=== PATIENT | female | born 1975 | race Caucasian/White ===

== ENCOUNTER → 2017-12-20 14:49 | Outpatient (CLI) | payer OTHER, SELFPAY | PROVIDERS: Family Provider Obstetrics & Gynecology; PCP Internal Medicine; Visit Provider Internal Medicine Gastroenterology | DX: M85.852 Other specified disorders of bone density and structure, left thigh (principal); Z82.62 Family history of osteoporosis; K50.80 Crohn's disease of both small and large intestine without complications | CPT/HCPCS: 77080 ==

== ENCOUNTER → 2017-12-23 12:22 | Outpatient (CLI) | payer OTHER, SELFPAY ==
--- NOTE | 2017-12-23 | DI.MG.S_ITS ---
BILATERAL DIGITAL SCREENING MAMMOGRAM 3D/2D WITH CAD: 12/23/2017 CLINICAL: Routine screening. Family history of breast cancer. Comparison is made to exams dated: 11/29/2016 mammogram, 11/19/2016 mammogram, and 11/14/2015 mammogram - [facility]. The tissue of both breasts is extremely dense, which lowers the sensitivity of mammography. Current study was also evaluated with a Computer Aided Detection (CAD) system. No significant masses, calcifications, or other findings are seen in either breast. There has been no significant interval change. IMPRESSION: NEGATIVE There is no mammographic evidence of malignancy. A 1 year screening mammogram is recommended. This exam was interpreted at Station ID: [id number]. NOTE: For mammograms, a report in lay terms will be sent to the patient. Approximately 15% of breast malignancies will not be visualized mammographically. In the management of a palpable breast mass, a negative mammogram must not discourage biopsy of a clinically suspicious lesion. Electronically Signed By: Judah pardo/mason:12/23/2017 14:45:40 copy to: Pushpa Urbina copy to: Betty Orozco letter sent: Normal Exam ACR BI-RADS Category 1: Negative [id number]
== END ==
PROVIDERS: Family Provider Obstetrics & Gynecology; PCP Internal Medicine; Visit Provider Family Medicine
DX: Z12.31 Encounter for screening mammogram for malignant neoplasm of breast (principal); Z80.3 Family history of malignant neoplasm of breast
CPT/HCPCS: 77063; 77067

== ENCOUNTER → 2018-03-22 09:20 | Outpatient (CLI) | payer OTHER, SELFPAY ==
[2018-03-22 10:25] LABS: Add Manual Diff / Slide Review NO; Basophils Percent Auto 0.9 % (0-2); Eosinophils Percent Auto 1.5 % (2-4); Hematocrit 39.7 % (36-46); Hemoglobin 13.8 g/dL (12.0-16.0); Lymphocytes Percent Auto 10.5 % (25-40); Mean Corpuscular HGB Conc 34.9 % (30-36); Mean Corpuscular Hemoglobin 34.1 PG (26-34); Mean Corpuscular Volume 97.8 fL (80-100); Monocytes Percent Auto 9.5 % (3-14); Neutrophils Absolute Auto 3600 /uL (3000-5900); Neutrophils Percent Auto 77.6 % (50-75); Platelet Count 301 X10^3/uL (150-400); Red Blood Cell Count 4.05 X10^6/uL (4.0-5.2); Red Cell Distribution Width 12.8 % (11.6-14.8); White Blood Cell Count 4.6 X10^3/uL (4.5-11.0)
[2018-03-22 10:46] LABS: Alanine Aminotransferase 20 IU/L (9-52); Albumin 4.5 g/dL (3.5-5.0); Albumin Globulin Ratio 1.5 (1.0-2.8); Alkaline Phosphatase 56 U/L (38-126); Aspartate Aminotransferase 19 IU/L (14-36); Bilirubin Unconjugated 0.8 mg/dL (0.0-1.1); HEMOLYSIS < 15 (0-50); Total Protein 7.5 g/dL (6.3-8.2)
== END ==
PROVIDERS: PCP Internal Medicine; Visit Provider Internal Medicine Gastroenterology
DX: K50.90 Crohn's disease, unspecified, without complications (principal)
CPT/HCPCS: 36415; 80076; 85025

== ENCOUNTER → 2018-04-24 09:08 | Outpatient (CLI) | payer OTHER, SELFPAY ==
[2018-04-24 11:38] LABS: Vitamin D 25 Hydroxy (D3) 38.5 ng/mL (30.0-100.0)
== END ==
PROVIDERS: PCP Internal Medicine; Visit Provider Internal Medicine
DX: K50.90 Crohn's disease, unspecified, without complications (principal); M85.80 Other specified disorders of bone density and structure, unspecified site
CPT/HCPCS: 36415; 82306

== ENCOUNTER → 2018-05-24 13:26 | Outpatient (CLI) | payer OTHER, SELFPAY ==
[2018-05-24 14:41] LABS: Add Manual Diff / Slide Review NO; Basophils Percent Auto 1.3 % (0-2); Eosinophils Percent Auto 1.5 % (2-4); Hematocrit 40.5 % (36-46); Hemoglobin 13.8 g/dL (12.0-16.0); Lymphocytes Percent Auto 22.5 % (25-40); Mean Corpuscular Hemoglobin 33.7 PG (26-34); Mean Corpuscular Volume 99.2 fL (80-100); Monocytes Percent Auto 10.8 % (3-14); Neutrophils Absolute Auto 2400 /uL (3000-5900); Neutrophils Percent Auto 63.9 % (50-75); Platelet Count 326 X10^3/uL (150-400); Red Blood Cell Count 4.08 X10^6/uL (4.0-5.2); White Blood Cell Count 3.7 X10^3/uL (4.5-11.0)
[2018-05-24 15:04] LABS: Erythrocyte Sedimentation Rate 12 MM/HR (0-20)
[2018-05-24 20:19] LABS: Alanine Aminotransferase 37 IU/L (9-52); Albumin 4.5 g/dL (3.5-5.0); Albumin Globulin Ratio 1.6 (1.0-2.8); Alkaline Phosphatase 59 U/L (38-126); Aspartate Aminotransferase 24 IU/L (14-36); BUN Creatinine Ratio 18.6 (6-22); Bilirubin Total 0.7 mg/dL (0.2-1.3); Blood Urea Nitrogen 13 mg/dL (7-17); Calcium 9.6 mg/dL (8.4-10.2); Carbon Dioxide 27 mmol/L (22-32); Chloride 101 mmol/L (98-107); Estimated Glomerular Filt Rate > 60.0 mL/min (>60); Globulin 2.9 g/dL (1.7-4.1); Glucose 90 mg/dL (70-100); HEMOLYSIS < 15 (0-50); Potassium 4.3 mmol/L (3.4-5.1); Sodium 141 mmol/L (137-145); Total Protein 7.4 g/dL (6.3-8.2)
[2018-05-24 20:29] LABS: C-Reactive Protein Quant < 0.5 mg/dL (<1.0)
== END ==
PROVIDERS: Family Provider Obstetrics & Gynecology; PCP Internal Medicine; Visit Provider Internal Medicine Gastroenterology
DX: M85.80 Other specified disorders of bone density and structure, unspecified site (principal)
CPT/HCPCS: 36415; 80053; 85025; 85651; 86140

== ENCOUNTER → 2018-05-25 11:59 | Outpatient (CLI) | payer OTHER, SELFPAY | PROVIDERS: Family Provider Obstetrics & Gynecology; PCP Internal Medicine; Visit Provider Internal Medicine Gastroenterology | DX: M85.80 Other specified disorders of bone density and structure, unspecified site (principal) | CPT/HCPCS: 80299 ==

== ENCOUNTER → 2018-07-17 13:48 | Outpatient (CLI) | payer OTHER, SELFPAY ==
[2018-07-17 15:02] LABS: Add Manual Diff / Slide Review NO; Basophils Percent Auto 1.4 % (0-2); Eosinophils Percent Auto 1.1 % (2-4); Hematocrit 39.9 % (36-46); Hemoglobin 13.8 g/dL (12.0-16.0); Lymphocytes Percent Auto 20.6 % (25-40); Mean Corpuscular HGB Conc 34.5 % (30-36); Mean Corpuscular Hemoglobin 35.1 PG (26-34); Mean Corpuscular Volume 101.9 fL (80-100); Monocytes Percent Auto 9.9 % (3-14); Neutrophils Absolute Auto 2600 /uL (1500-7000); Platelet Count 355 X10^3/uL (150-400); Red Blood Cell Count 3.92 X10^6/uL (4.0-5.2); Red Cell Distribution Width 14.3 % (11.6-14.8); White Blood Cell Count 3.8 X10^3/uL (4.5-11.0)
[2018-07-17 15:26] LABS: Alanine Aminotransferase 37 IU/L (9-52)
== END ==
PROVIDERS: Family Provider Obstetrics & Gynecology; PCP Internal Medicine; Visit Provider Internal Medicine Gastroenterology
DX: K50.90 Crohn's disease, unspecified, without complications (principal)
CPT/HCPCS: 36415; 84460; 85025

== ENCOUNTER → 2018-12-25 13:28 | Outpatient (CLI) | payer OTHER, SELFPAY | PROVIDERS: Family Provider Internal Medicine; PCP Internal Medicine; Visit Provider Internal Medicine | DX: M85.851 Other specified disorders of bone density and structure, right thigh (principal); K50.80 Crohn's disease of both small and large intestine without complications; Z79.899 Other long term (current) drug therapy; Z82.62 Family history of osteoporosis | CPT/HCPCS: 77080 ==

== ENCOUNTER → 2018-12-26 10:28 | Outpatient (CLI) | payer OTHER, SELFPAY ==
--- NOTE | 2018-12-26 | DI.MG.S_ITS ---
BILATERAL DIGITAL SCREENING MAMMOGRAM 3D/2D WITH CAD: 12/26/2018 CLINICAL: Routine screening. Family history of breast cancer. Comparison is made to exams dated: 12/23/2017 mammogram, 11/29/2016 mammogram, 11/19/2016 mammogram, and 11/14/2015 mammogram - [facility]. The tissue of both breasts is extremely dense, which lowers the sensitivity of mammography. Current study was also evaluated with a Computer Aided Detection (CAD) system. No significant masses, calcifications, or other findings are seen in either breast. There has been no significant interval change. IMPRESSION: NEGATIVE There is no mammographic evidence of malignancy. A 1 year screening mammogram is recommended. This exam was interpreted at Station ID: [id number]. NOTE: For mammograms, a report in lay terms will be sent to the patient. Approximately 15% of breast malignancies will not be visualized mammographically. In the management of a palpable breast mass, a negative mammogram must not discourage biopsy of a clinically suspicious lesion. Electronically Signed By: Francisco [email or web address]/[email or web address]:12/26/2018 16:22:57 copy to: Pushpa Urbina copy to: Betty Orozco letter sent: Normal Exam ACR BI-RADS Category 1: Negative [id number]
== END ==
PROVIDERS: PCP Internal Medicine; Visit Provider Internal Medicine
DX: Z12.31 Encounter for screening mammogram for malignant neoplasm of breast (principal); Z80.3 Family history of malignant neoplasm of breast
CPT/HCPCS: 77063; 77067

== ENCOUNTER 2019-01-31 08:15 | Outpatient (RCR) | payer OTHER, SELFPAY ==
--- NOTE | 2018-11-14 17:33 | PT.OIE ---
Current Diagnoses Pain in left shoulder (11/14/18) Past Medical History (Last Updated 02/26/18 @ 18:49 by Ivy Goff) Abnormal Pap smear of cervix (Chronic) Colon polyps (Chronic) Crohn's disease (Chronic ~1993) Plantar warts (Chronic) Scoliosis (Chronic ~1982) Vitamin B12 deficiency (Chronic) Past Surgical History (Last Updated 02/26/18 @ 18:49 by Ivy Goff) Anesthesia (Resolved) History of resection of small bowel (Resolved) History of third molar tooth extraction Status post appendectomy (~1994) Provider Visit Care Team Role Provider Type JAMAR Zelaya Attending Provider Advanced Verifying Specialist Family Provider Primary Care Provider Specialty: Family Practice Address: [address] [place] [address], [facility] Email: [email or web address] Physical Therapy Initial Evaluation PT-OP-A Visit Information Start: 11/14/18 08:11 Freq: Status: Active Protocol: Document 11/14/18 08:12 EA (Rec: 11/14/18 08:15 EA [id number]) Out-Patient Physical Therapy Visit Information Visit Information Visit Type Initial Evaluation Visit Start Time 07:30 Visit Stop Time 08:23 Total Visit Minutes 53 Visit Number 1 Evaluation Information Evaluation Date 11/14/18 PT-OP-B Current Condition Start: 11/14/18 08:11 Freq: Status: Active Protocol: Document 11/15/18 07:30 EA (Rec: 11/15/18 07:53 EA [id number]) Current Condition History of Current Condition Onset Date 1 1/2 month ago Current Complaints Left shoulder pain History of Current Condition Present condition started 1 1/ 2 month ago with no known reason; states pain gradually developed and aggravated with shoulder internal rotation and adduction like wearing under shirt of jacket. He mentioned that she has a side table drawer on the left side that she thinks aggravated most when opening and closing it. She denies pain at night. Patient reports no recent x- ray performed. She does go to chiropractor once a month and massage therapist with good results. Prescribed anti- inflammatory meds helps her to managed pain. Prior Treatments and Tests Chiropractor and massage therapist treament once month. Future Testing and Treatments Planned None identified. Treatment Goals Patient/Caregiver Goals Patient would like to get rid of the pain. Prior Functional Status Baseline Function- ADL's Independent Baseline Function- Mobility Independent Baseline Function- Work/School No limitation at work 1 1/2 month ago Baseline Function- Recreation/Hobbies Did not mentioned any recreational activities or hobbies. Current Functional Impairments (Reported) Functional Limitations- ADL's Indep with limitation in overhead, donning and doffing clothings. 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 Difficulty with closing and opening left side table drawer Functional Limitations- Recreation/ No mentioned recreation and Hobbies hobbies Functional Limitations- Other None Personal Factors Other Personal Factors That May Effect Chron's disease Therapy/Recovery PT-OP-C Subjective Start: 11/14/18 08:11 Freq: Status: Active Protocol: Document 11/15/18 07:30 EA (Rec: 11/15/18 07:53 EA [id number]) OP-PT Subjective Patient Comments Patient Comments I have difficulty of putting my clothes on and off Patient Reported Progress Same Patient Questionnaires Quick Dash- Upper Extremity Quick Dash UE Score 16 Quick Dash UE Impairment 1 to 19% Impaired (Score 1-19) PT-OP-E Functional Tests Start: 11/14/18 08:11 Freq: Status: Active Protocol: Document 11/15/18 07:30 EA (Rec: 11/15/18 07:53 EA [id number]) Functional Tests Apley's Scratch Test Action 1: The subject is instructed to touch the opposite shoulder with his/her hand. This motion checks Glenohumeral adduction, internal rotation , horizontal adduction and scapular protraction Action 2: The subject is instructed to place his/her arm overhead and reach behind the neck to touch his/her upper back. This motion checks Glenohumeral abduction, external rotation and scapular upward rotation and elevation. Action 3: The subject puts his/her hand on the lower back and reaches upward as far as possible. This motion checks glenohumeral adduction, internal rotation and scapular retraction with downward rotation Action 1- Left able Action 1- Right able Action 2- Left T4 Action 2- Right T6 Action 3- Left T8 Action 3- Right T4 PT-OP-F Manual Assessment Start: 11/14/18 08:11 Freq: Status: Active Protocol: Document 11/15/18 07:30 EA (Rec: 11/15/18 07:53 EA [id number]) Manual Assessments Soft Tissue Assessment Soft Tissue Mobility Assessment Pectorals, Left upper traps. Joint Mobility Assessment Joint Mobility Assessment Normal PT-OP-J Posture/Palpation/Skin Start: 11/14/18 08:11 Freq: Status: Active Protocol: Document 11/15/18 07:30 EA (Rec: 11/15/18 07:53 EA [id number]) Posture Evaluation Comments Posture Comments Slight forward head rouded shoulder with left shoulder slightly elevated. Palpation Assessment Location One Palpation Location Left upper traps, Teres Minor, Infraspinatus Palpation Findings Tenderness PT-OP-K Range of Motion Start: 11/14/18 08:11 Freq: Status: Active Protocol: Document 11/15/18 07:30 EA (Rec: 11/15/18 07:53 EA [id number]) Shoulder Goniometric Range of Motion Shoulder Measured in Degrees Right Active Shoulder ROM WFL Yes Left Active Flexion 180 Extension 60 Abduction 180 External Rotation at 90 degrees 70 Abduction Internal Rotation Behind Back (text) 40 PT-OP-L Special Tests Start: 11/14/18 08:11 Freq: Status: Active Protocol: Document 11/15/18 07:30 EA (Rec: 11/15/18 07:53 EA [id number]) Special Tests Shoulder Special Tests Yergason's Biceps Test Results - Posterior Impingement Test Results + Lift-Off Rotator Cuff Test Results + Empty Can Test Results sensitive Fregoso Impingement Test Results + Elevation Impingement Test Results + PT-OP-M Strength Start: 11/14/18 08:11 Freq: Status: Active Protocol: Document 11/15/18 07:30 EA (Rec: 11/15/18 07:53 EA [id number]) Shoulder Strength Shoulder Manual Muscle Testing Right Reason Not Measured WFL Left Flexion 4 Good Extension 5 Normal Abduction (C5) 4 Good Adduction 5 Normal External Rotation 4- Good- Internal Rotation 4- Good- Comments Pain with resisted ER PT-OP-Q Treatments Start: 11/14/18 08:11 Freq: Status: Active Protocol: Document 11/14/18 08:56 EA (Rec: 11/14/18 09:00 EA [id number]) Manual Therapy Treatment Soft Tissue Mobilization 1 Body Location Posterior left shoulder Mobilization Type Cross-Friction Myofascial Release Rolling Intensity/Depth Moderate Body Position Sidelying PT-OP-R Modalities Start: 11/14/18 08:11 Freq: Status: Active Protocol: Document 11/14/18 08:56 EA (Rec: 11/14/18 09:00 EA [id number]) Electric Stimulation Electric Stimulation Interferential Current (IFC) Body Location Post left shoulder/ Infra, Supra Contraction Type Normal Combined With Heat/Cold Cold Pack Ultrasound Therapy Treatment Left Posterior Shoulder Patient Position Sidelying Coupling Medium Ultrasound Gel Frequency Setting (mHz) 1 Mode Setting Continuous Intensity Setting (w/cm2) 1.2 PT-OP-T Assessment and Plan Start: 11/14/18 08:11 Freq: Status: Active Protocol: Document 11/14/18 08:56 EA (Rec: 11/14/18 09:00 EA [id number]) Physical Therapy Assessment Rehab Potential Rehabilitation Potential Good Evaluation Complexity Number of Personal Factors/Comorbidities 0 Number of Body Systems Impaired 1-2 Clinical Presentation at Evaluation Stable Impairments Impairments Activity Tolerance Pain Posture Strength Goals Four Impairment Impaired functioanal Appley's test Correction Goal (LTG) Patient will have normal functional reach behind with no increase in symptoms. LTG Duration 4 wks Three Impairment Impaired donning and doffing upper clothings Nylon Hot Wire Cutter Goal (LTG) Patient will jefferson and doff clothings with no pain and impairment. LTG Duration 4 wks Two Impairment quick Dash of 16 Correction Goal (LTG) Patient will have quickDash results of < 10 LTG Duration 4 wks One Impairment NO HEP in place Nylon Hot Wire Cutter Goal (LTG) Patient will exhibit indep HEP . LTG Duration 4 wks Assessment Summary Assessment Pleasant 43 y/o F patient with referring diagnosis left shoulder pain. Today patient demonstrates difficulty with shoulder mobility particularly reaching behind due to pain and slight stiffness to shoulder joint. Tests and assessment reveals + with three special tests consistent with rotator cuff tendonitis possibly infraspinatus and teres minor tendon. No tear identified at the moment as weakness is probably attributed to pain. In my professional opinion, patient would benefit with skilled PT to address the issues of pain, muscular stiffness, posture with an aim of restoring previous level of function. Physical Therapy Plan Frequency and Duration Frequency of Treatment 2x/Week Duration of Treatment 8 wks Plan of Care Start Date 11/14/18 Plan of Care End Date 01/09/19 Therapeutic Interventions Therapeutic Interventions Home Exercise Program Joint Mobilizations Manual Therapy Patient/Caregiver Education Self-Care/Home Management Soft Tissue Mobilization Taping Therapeutic Exercises Modalities Cold Pack/Ice Massage Electric Stimulation Hot Packs Ultrasound Next Visit Focus/Plan Next Note Type Treatment Note Next Visit Plan Provide HEP with Images. Modalities and manual therapy for pain. strengthening
--- NOTE | 2018-11-14 17:33 | PT.OPPOC ---
Current Diagnoses Pain in left shoulder (11/14/18) Provider Visit Care Team Role Provider Type JAMAR Zelaya Attending Provider Advanced Wax Ball Knock Out Worker Family Provider Primary Care Provider Specialty: Family Practice Address: [address] [place] [address], [facility] [place], [facility] Email: [email or web address] Plan Of Care PT-OP-T Assessment and Plan Start: 11/14/18 08:11 Freq: Status: Active Protocol: Document 11/14/18 08:56 EA (Rec: 11/14/18 09:00 EA [id number]) Physical Therapy Assessment Rehab Potential Rehabilitation Potential Good Evaluation Complexity Number of Personal Factors/Comorbidities 0 Number of Body Systems Impaired 1-2 Clinical Presentation at Evaluation Stable Impairments Impairments Activity Tolerance Pain Posture Strength Goals Four Impairment Impaired functional Appley's test Crusher Goal (LTG) Patient will have normal functional reach behind with no increase in symptoms. LTG Duration 4 wks Three Impairment Impaired donning and doffing upper clothings Crusher Goal (LTG) Patient will jefferson and doff clothings with no pain and impairment. LTG Duration 4 wks Two Impairment quick Dash of 16 Care Home Goal (LTG) Patient will have quickDash results of < 10 LTG Duration 4 wks One Impairment NO HEP in place Care Home Goal (LTG) Patient will exhibit indep HEP . LTG Duration 4 wks Assessment Summary Assessment Pleasant 43 y/o F patient with referring diagnosis left shoulder pain. Today patient demonstrates difficulty with shoulder mobility particularly reaching behind due to pain and slight stiffness to shoulder joint. Tests and assessment reveals + with three special tests consistent with rotator cuff tendonitis possibly infraspinatus and teres minor tendon. No tear identified at the moment as weakness is probably attributed to pain. In my professional opinion, patient would benefit with skilled PT to address the issues of pain, muscular stiffness, posture with an aim of restoring previous level of function. Physical Therapy Plan Frequency and Duration Frequency of Treatment 2x/Week Duration of Treatment 8 wks Plan of Care Start Date 11/14/18 Plan of Care End Date 01/09/19 Therapeutic Interventions Therapeutic Interventions Home Exercise Program Joint Mobilizations Manual Therapy Patient/Caregiver Education Self-Care/Home Management Soft Tissue Mobilization Taping Therapeutic Exercises Modalities Cold Pack/Ice Massage Electric Stimulation Hot Packs Ultrasound Next Visit Focus/Plan Next Note Type Treatment Note Next Visit Plan Provide HEP with Images. Modalities and manual therapy for pain. strengthening Plan of Care Dates Plan of Care Start Date 11/14/18 Plan of Care End Date 01/09/19 Please Sign and Return: I have reviewed this Plan of Care and certify that the skilled therapy services above are required to meet the patient?s needs. Physician Signature Date Printed Name and Credentials Clinical Instructor Signature Printed Name and Credentials
--- NOTE | 2018-11-16 08:59 | PT.OTN ---
Current Diagnoses Pain in left shoulder (11/16/18) Physical Therapy Treatment Note PT-OP-A Visit Information Start: 11/14/18 08:11 Freq: Status: Active Protocol: Document 11/16/18 08:19 EA (Rec: 11/16/18 08:21 EA [id number]) Out-Patient Physical Therapy Visit Information Visit Information Visit Type Treatment Note Visit Start Time 07:30 Visit Stop Time 08:23 Total Visit Minutes 53 Visit Number 2 PT-OP-B Current Condition Start: 11/14/18 08:11 Freq: Status: Active Protocol: Document 11/15/18 07:30 EA (Rec: 11/15/18 07:53 EA [id number]) Current Condition History of Current Condition Onset Date 1 1/2 month ago Current Complaints Left shoulder pain History of Current Condition Present condition started 1 1/ 2 month ago with no known reason; states pain gradually developed and aggravated with shoulder internal rotation and adduction like wearing under shirt of jacket. He mentioned that she has a side table drawer on the left side that she thinks aggravated most when opening and closing it. She denies pain at night. Patient reports no recent x- ray performed. She does go to chiropractor once a month and massage therapist with good results. Prescribed anti- inflammatory meds helps her to managed pain. Prior Treatments and Tests Chiropractor and massage therapist treament once month. Future Testing and Treatments Planned None identified. Treatment Goals Patient/Caregiver Goals Patient would like to get rid of the pain. Prior Functional Status Baseline Function- ADL's Independent Baseline Function- Mobility Independent Baseline Function- Work/School No limitation at work 1 1/2 month ago Baseline Function- Recreation/Hobbies Did not mentioned any recreational activities or hobbies. Current Functional Impairments (Reported) Functional Limitations- ADL's Indep with limitation in overhead, donning and doffing clothings. 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 Difficulty with closing and opening left side table drawer Functional Limitations- Recreation/ No mentioned recreation and Hobbies hobbies Functional Limitations- Other None Personal Factors Other Personal Factors That May Effect Chron's disease Therapy/Recovery PT-OP-C Subjective Start: 11/14/18 08:11 Freq: Status: Active Protocol: Document 11/16/18 08:56 EA (Rec: 11/16/18 08:57 EA [id number]) OP-PT Subjective Patient Comments Patient Comments Pt reports last session was helpful; would like to know HEP. Patient Reported Progress Improving PT-OP-E Functional Tests Start: 11/14/18 08:11 Freq: Status: Active Protocol: Document 11/15/18 07:30 EA (Rec: 11/15/18 07:53 EA [id number]) Functional Tests Apley's Scratch Test Action 1: The subject is instructed to touch the opposite shoulder with his/her hand. This motion checks Glenohumeral adduction, internal rotation , horizontal adduction and scapular protraction Action 2: The subject is instructed to place his/her arm overhead and reach behind the neck to touch his/her upper back. This motion checks Glenohumeral abduction, external rotation and scapular upward rotation and elevation. Action 3: The subject puts his/her hand on the lower back and reaches upward as far as possible. This motion checks glenohumeral adduction, internal rotation and scapular retraction with downward rotation Action 1- Left able Action 1- Right able Action 2- Left T4 Action 2- Right T6 Action 3- Left T8 Action 3- Right T4 PT-OP-F Manual Assessment Start: 11/14/18 08:11 Freq: Status: Active Protocol: Document 11/15/18 07:30 EA (Rec: 11/15/18 07:53 EA [id number]) Manual Assessments Soft Tissue Assessment Soft Tissue Mobility Assessment Pectorals, Left upper traps. Joint Mobility Assessment Joint Mobility Assessment Normal PT-OP-J Posture/Palpation/Skin Start: 11/14/18 08:11 Freq: Status: Active Protocol: Document 11/15/18 07:30 EA (Rec: 11/15/18 07:53 EA [id number]) Posture Evaluation Comments Posture Comments Slight forward head rouded shoulder with left shoulder slightly elevated. Palpation Assessment Location One Palpation Location Left upper traps, Teres Minor, Infraspinatus Palpation Findings Tenderness PT-OP-K Range of Motion Start: 11/14/18 08:11 Freq: Status: Active Protocol: Document 11/15/18 07:30 EA (Rec: 11/15/18 07:53 EA [id number]) Shoulder Goniometric Range of Motion Shoulder Measured in Degrees Right Active Shoulder ROM WFL Yes Left Active Flexion 180 Extension 60 Abduction 180 External Rotation at 90 degrees 70 Abduction Internal Rotation Behind Back (text) 40 PT-OP-L Special Tests Start: 11/14/18 08:11 Freq: Status: Active Protocol: Document 11/15/18 07:30 EA (Rec: 11/15/18 07:53 EA [id number]) Special Tests Shoulder Special Tests Yergason's Biceps Test Results - Posterior Impingement Test Results + Lift-Off Rotator Cuff Test Results + Empty Can Test Results sensitive Fregoso Impingement Test Results + Elevation Impingement Test Results + PT-OP-M Strength Start: 11/14/18 08:11 Freq: Status: Active Protocol: Document 11/15/18 07:30 EA (Rec: 11/15/18 07:53 EA [id number]) Shoulder Strength Shoulder Manual Muscle Testing Right Reason Not Measured WFL Left Flexion 4 Good Extension 5 Normal Abduction (C5) 4 Good Adduction 5 Normal External Rotation 4- Good- Internal Rotation 4- Good- Comments Pain with resisted ER PT-OP-Q Treatments Start: 11/14/18 08:11 Freq: Status: Active Protocol: Document 11/16/18 08:19 EA (Rec: 11/16/18 08:21 EA [id number]) Therapeutic Exercises Supine Exercises 1 Supine Exercise Name T-pbars flexion Side bilateral Reps/Minutes x15 reps Sidelying Exercises 3 Sidelying Exercise Name Horiz ABD Side left Reps/Minutes x 15 reps 2 Sidelying Exercise Name Abduction Side left Reps/Minutes x15 reps 1 Sidelying Exercise Name ER Side left Reps/Minutes x15 reps Standing Exercises 1 Standing Exercise Name T-bar shoulder ext Side bilateral Reps/Minutes x 15 reps Manual Therapy Treatment Soft Tissue Mobilization 1 Body Location Posterior left shoulder Mobilization Type Cross-Friction Myofascial Release Rolling Intensity/Depth Moderate Body Position Sidelying Self-Care/Home Management Treatment Education Patient Education Home Exercise Program Joint Protection Pain Management PT-OP-R Modalities Start: 11/14/18 08:11 Freq: Status: Active Protocol: Document 11/16/18 08:19 EA (Rec: 11/16/18 08:21 EA [id number]) Electric Stimulation Electric Stimulation Interferential Current (IFC) Body Location Post left shoulder/ Infra, Supra Contraction Type Normal Combined With Heat/Cold Cold Pack Ultrasound Therapy Treatment Left Posterior Shoulder Patient Position Sidelying Coupling Medium Ultrasound Gel Frequency Setting (mHz) 1 Mode Setting Continuous Intensity Setting (w/cm2) 1.2 PT-OP-T Assessment and Plan Start: 11/14/18 08:11 Freq: Status: Active Protocol: Document 11/16/18 08:56 EA (Rec: 11/16/18 08:57 EA [id number]) Physical Therapy Assessment Assessment Summary Assessment Tolerated treatment well. HEP given, educated and understands safety. Physical Therapy Plan Next Visit Focus/Plan Next Note Type Treatment Note Next Visit Plan cont. with current plan.
--- NOTE | 2018-11-21 12:56 | PT.OTN ---
Current Diagnoses Pain in left shoulder (11/21/18) Physical Therapy Treatment Note PT-OP-A Visit Information Start: 11/14/18 08:11 Freq: Status: Active Protocol: Document 11/21/18 08:12 EA (Rec: 11/21/18 08:16 EA [id number]) Out-Patient Physical Therapy Visit Information Visit Information Visit Type Treatment Note Visit Start Time 07:30 Visit Stop Time 08:25 Total Visit Minutes 55 Visit Number 3 PT-OP-B Current Condition Start: 11/14/18 08:11 Freq: Status: Active Protocol: Document 11/15/18 07:30 EA (Rec: 11/15/18 07:53 EA [id number]) Current Condition History of Current Condition Onset Date 1 1/2 month ago Current Complaints Left shoulder pain History of Current Condition Present condition started 1 1/ 2 month ago with no known reason; states pain gradually developed and aggravated with shoulder internal rotation and adduction like wearing under shirt of jacket. He mentioned that she has a side table drawer on the left side that she thinks aggravated most when opening and closing it. She denies pain at night. Patient reports no recent x- ray performed. She does go to chiropractor once a month and massage therapist with good results. Prescribed anti- inflammatory meds helps her to managed pain. Prior Treatments and Tests Chiropractor and massage therapist treament once month. Future Testing and Treatments Planned None identified. Treatment Goals Patient/Caregiver Goals Patient would like to get rid of the pain. Prior Functional Status Baseline Function- ADL's Independent Baseline Function- Mobility Independent Baseline Function- Work/School No limitation at work 1 1/2 month ago Baseline Function- Recreation/Hobbies Did not mentioned any recreational activities or hobbies. Current Functional Impairments (Reported) Functional Limitations- ADL's Indep with limitation in overhead, donning and doffing clothings. 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 Difficulty with closing and opening left side table drawer Functional Limitations- Recreation/ No mentioned recreation and Hobbies hobbies Functional Limitations- Other None Personal Factors Other Personal Factors That May Effect Chron's disease Therapy/Recovery PT-OP-C Subjective Start: 11/14/18 08:11 Freq: Status: Active Protocol: Document 11/16/18 08:56 EA (Rec: 11/16/18 08:57 EA [id number]) OP-PT Subjective Patient Comments Patient Comments Pt reports last session was helpful; would like to know HEP. Patient Reported Progress Improving PT-OP-E Functional Tests Start: 11/14/18 08:11 Freq: Status: Active Protocol: Document 11/15/18 07:30 EA (Rec: 11/15/18 07:53 EA [id number]) Functional Tests Apley's Scratch Test Action 1: The subject is instructed to touch the opposite shoulder with his/her hand. This motion checks Glenohumeral adduction, internal rotation , horizontal adduction and scapular protraction Action 2: The subject is instructed to place his/her arm overhead and reach behind the neck to touch his/her upper back. This motion checks Glenohumeral abduction, external rotation and scapular upward rotation and elevation. Action 3: The subject puts his/her hand on the lower back and reaches upward as far as possible. This motion checks glenohumeral adduction, internal rotation and scapular retraction with downward rotation Action 1- Left able Action 1- Right able Action 2- Left T4 Action 2- Right T6 Action 3- Left T8 Action 3- Right T4 PT-OP-F Manual Assessment Start: 11/14/18 08:11 Freq: Status: Active Protocol: Document 11/15/18 07:30 EA (Rec: 11/15/18 07:53 EA [id number]) Manual Assessments Soft Tissue Assessment Soft Tissue Mobility Assessment Pectorals, Left upper traps. Joint Mobility Assessment Joint Mobility Assessment Normal PT-OP-J Posture/Palpation/Skin Start: 11/14/18 08:11 Freq: Status: Active Protocol: Document 11/15/18 07:30 EA (Rec: 11/15/18 07:53 EA [id number]) Posture Evaluation Comments Posture Comments Slight forward head rouded shoulder with left shoulder slightly elevated. Palpation Assessment Location One Palpation Location Left upper traps, Teres Minor, Infraspinatus Palpation Findings Tenderness PT-OP-K Range of Motion Start: 11/14/18 08:11 Freq: Status: Active Protocol: Document 11/15/18 07:30 EA (Rec: 11/15/18 07:53 EA [id number]) Shoulder Goniometric Range of Motion Shoulder Measured in Degrees Right Active Shoulder ROM WFL Yes Left Active Flexion 180 Extension 60 Abduction 180 External Rotation at 90 degrees 70 Abduction Internal Rotation Behind Back (text) 40 PT-OP-L Special Tests Start: 11/14/18 08:11 Freq: Status: Active Protocol: Document 11/15/18 07:30 EA (Rec: 11/15/18 07:53 EA [id number]) Special Tests Shoulder Special Tests Yergason's Biceps Test Results - Posterior Impingement Test Results + Lift-Off Rotator Cuff Test Results + Empty Can Test Results sensitive Fregoso Impingement Test Results + Elevation Impingement Test Results + PT-OP-M Strength Start: 11/14/18 08:11 Freq: Status: Active Protocol: Document 11/15/18 07:30 EA (Rec: 11/15/18 07:53 EA [id number]) Shoulder Strength Shoulder Manual Muscle Testing Right Reason Not Measured WFL Left Flexion 4 Good Extension 5 Normal Abduction (C5) 4 Good Adduction 5 Normal External Rotation 4- Good- Internal Rotation 4- Good- Comments Pain with resisted ER PT-OP-Q Treatments Start: 11/14/18 08:11 Freq: Status: Active Protocol: Document 11/21/18 08:12 EA (Rec: 11/21/18 08:16 EA [id number]) Cardio Equipment Upper Body Ergometer (UBE) Duration (Minutes) 5 Height 5 Gym Equipment Cable Column (Body Solid) Rows Resistance 10# Reps/Time x 15 reps Therapeutic Exercises Prone Exercises 1 Prone Exercise Name T-bal shoulder T and Y Resistance 1# Reps/Minutes x 15 reps Sidelying Exercises 3 Sidelying Exercise Name Horiz ABD Side left Resistance 1# Reps/Minutes x 15 reps 2 Sidelying Exercise Name Abduction Side left Resistance 1# Reps/Minutes x15 reps 1 Sidelying Exercise Name ER Side left Reps/Minutes x15 reps Standing Exercises 2 Standing Exercise Name wall posture T-bar flexion Resistance #2 1 Standing Exercise Name T-bar shoulder ext Side bilateral Resistance 2# Reps/Minutes x 15 reps Manual Therapy Treatment Soft Tissue Mobilization 1 Body Location Posterior left shoulder Mobilization Type Cross-Friction Myofascial Release Rolling Intensity/Depth Moderate Body Position Sidelying PT-OP-R Modalities Start: 11/14/18 08:11 Freq: Status: Active Protocol: Document 11/21/18 08:12 EA (Rec: 11/21/18 08:16 EA [id number]) Electric Stimulation Electric Stimulation Interferential Current (IFC) Body Location Post left shoulder/ Infra, Supra Contraction Type Normal Combined With Heat/Cold Cold Pack Ultrasound Therapy Treatment Left Posterior Shoulder Treatment Duration (minutes) 5 Patient Position Sidelying Coupling Medium Ultrasound Gel Frequency Setting (mHz) 1 Mode Setting Continuous Intensity Setting (w/cm2) 1.2 PT-OP-T Assessment and Plan Start: 11/14/18 08:11 Freq: Status: Active Protocol: Document 11/21/18 08:12 EA (Rec: 11/21/18 08:16 EA [id number]) Physical Therapy Assessment Assessment Summary Assessment Improved exercises tolerance. Patient is progressing well. Physical Therapy Plan Next Visit Focus/Plan Next Note Type Treatment Note Next Visit Plan Advance as tolerated.
--- NOTE | 2018-11-23 09:14 | PT.OTN ---
Current Diagnoses Pain in left shoulder (11/23/18) Physical Therapy Treatment Note PT-OP-A Visit Information Start: 11/14/18 08:11 Freq: Status: Active Protocol: Document 11/23/18 08:15 EA (Rec: 11/23/18 08:18 EA [id number]) Out-Patient Physical Therapy Visit Information Visit Information Visit Type Treatment Note Visit Start Time 07:30 Visit Stop Time 08:25 Total Visit Minutes 55 Visit Number 4 PT-OP-B Current Condition Start: 11/14/18 08:11 Freq: Status: Active Protocol: Document 11/15/18 07:30 EA (Rec: 11/15/18 07:53 EA [id number]) Current Condition History of Current Condition Onset Date 1 1/2 month ago Current Complaints Left shoulder pain History of Current Condition Present condition started 1 1/ 2 month ago with no known reason; states pain gradually developed and aggravated with shoulder internal rotation and adduction like wearing under shirt of jacket. He mentioned that she has a side table drawer on the left side that she thinks aggravated most when opening and closing it. She denies pain at night. Patient reports no recent x- ray performed. She does go to chiropractor once a month and massage therapist with good results. Prescribed anti- inflammatory meds helps her to managed pain. Prior Treatments and Tests Chiropractor and massage therapist treament once month. Future Testing and Treatments Planned None identified. Treatment Goals Patient/Caregiver Goals Patient would like to get rid of the pain. Prior Functional Status Baseline Function- ADL's Independent Baseline Function- Mobility Independent Baseline Function- Work/School No limitation at work 1 1/2 month ago Baseline Function- Recreation/Hobbies Did not mentioned any recreational activities or hobbies. Current Functional Impairments (Reported) Functional Limitations- ADL's Indep with limitation in overhead, donning and doffing clothings. 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 Difficulty with closing and opening left side table drawer Functional Limitations- Recreation/ No mentioned recreation and Hobbies hobbies Functional Limitations- Other None Personal Factors Other Personal Factors That May Effect Chron's disease Therapy/Recovery PT-OP-C Subjective Start: 11/14/18 08:11 Freq: Status: Active Protocol: Document 11/23/18 08:15 EA (Rec: 11/23/18 08:18 EA [id number]) OP-PT Subjective Patient Comments Patient Comments Pt reports shoulder is feeling better; states sore after last session. Patient Reported Progress Improving PT-OP-E Functional Tests Start: 11/14/18 08:11 Freq: Status: Active Protocol: Document 11/15/18 07:30 EA (Rec: 11/15/18 07:53 EA [id number]) Functional Tests Apley's Scratch Test Action 1: The subject is instructed to touch the opposite shoulder with his/her hand. This motion checks Glenohumeral adduction, internal rotation , horizontal adduction and scapular protraction Action 2: The subject is instructed to place his/her arm overhead and reach behind the neck to touch his/her upper back. This motion checks Glenohumeral abduction, external rotation and scapular upward rotation and elevation. Action 3: The subject puts his/her hand on the lower back and reaches upward as far as possible. This motion checks glenohumeral adduction, internal rotation and scapular retraction with downward rotation Action 1- Left able Action 1- Right able Action 2- Left T4 Action 2- Right T6 Action 3- Left T8 Action 3- Right T4 PT-OP-F Manual Assessment Start: 11/14/18 08:11 Freq: Status: Active Protocol: Document 11/15/18 07:30 EA (Rec: 11/15/18 07:53 EA [id number]) Manual Assessments Soft Tissue Assessment Soft Tissue Mobility Assessment Pectorals, Left upper traps. Joint Mobility Assessment Joint Mobility Assessment Normal PT-OP-J Posture/Palpation/Skin Start: 11/14/18 08:11 Freq: Status: Active Protocol: Document 11/15/18 07:30 EA (Rec: 11/15/18 07:53 EA [id number]) Posture Evaluation Comments Posture Comments Slight forward head rouded shoulder with left shoulder slightly elevated. Palpation Assessment Location One Palpation Location Left upper traps, Teres Minor, Infraspinatus Palpation Findings Tenderness PT-OP-K Range of Motion Start: 11/14/18 08:11 Freq: Status: Active Protocol: Document 11/15/18 07:30 EA (Rec: 11/15/18 07:53 EA [id number]) Shoulder Goniometric Range of Motion Shoulder Measured in Degrees Right Active Shoulder ROM WFL Yes Left Active Flexion 180 Extension 60 Abduction 180 External Rotation at 90 degrees 70 Abduction Internal Rotation Behind Back (text) 40 PT-OP-L Special Tests Start: 11/14/18 08:11 Freq: Status: Active Protocol: Document 11/15/18 07:30 EA (Rec: 11/15/18 07:53 EA [id number]) Special Tests Shoulder Special Tests Yergason's Biceps Test Results - Posterior Impingement Test Results + Lift-Off Rotator Cuff Test Results + Empty Can Test Results sensitive Fregoso Impingement Test Results + Elevation Impingement Test Results + PT-OP-M Strength Start: 11/14/18 08:11 Freq: Status: Active Protocol: Document 11/15/18 07:30 EA (Rec: 11/15/18 07:53 EA [id number]) Shoulder Strength Shoulder Manual Muscle Testing Right Reason Not Measured WFL Left Flexion 4 Good Extension 5 Normal Abduction (C5) 4 Good Adduction 5 Normal External Rotation 4- Good- Internal Rotation 4- Good- Comments Pain with resisted ER PT-OP-Q Treatments Start: 11/14/18 08:11 Freq: Status: Active Protocol: Document 11/23/18 08:15 EA (Rec: 11/23/18 08:18 EA [id number]) Gym Equipment Cable Column (Body Solid) Rows Resistance 10-20# Reps/Time x 15 reps Therapeutic Exercises Prone Exercises 1 Prone Exercise Name T-bal shoulder T and Y Resistance 1-2# Reps/Minutes x 15 reps Sidelying Exercises 3 Sidelying Exercise Name Horiz ABD Side left Resistance 1# Reps/Minutes x 15 reps 2 Sidelying Exercise Name Abduction Side left Resistance 1# Reps/Minutes x15 reps 1 Sidelying Exercise Name ER Side left Reps/Minutes x15 reps Standing Exercises 3 Standing Exercise Name DB front and side raises Resistance x1-2# Reps/Minutes x 12 reps x 2 2 Standing Exercise Name wall posture T-bar flexion Resistance #2 1 Standing Exercise Name T-bar shoulder ext Side bilateral Resistance 2# Reps/Minutes x 15 reps Manual Therapy Treatment Soft Tissue Mobilization 1 Body Location Posterior left shoulder Mobilization Type Cross-Friction Myofascial Release Rolling Intensity/Depth Moderate Body Position Sidelying PT-OP-R Modalities Start: 11/14/18 08:11 Freq: Status: Active Protocol: Document 11/23/18 08:15 EA (Rec: 11/23/18 08:18 EA [id number]) Electric Stimulation Electric Stimulation Interferential Current (IFC) Body Location Post left shoulder/ Infra, Supra Contraction Type Normal Combined With Heat/Cold Cold Pack Ultrasound Therapy Treatment Left Posterior Shoulder Treatment Duration (minutes) 5 Patient Position Sidelying Coupling Medium Ultrasound Gel Frequency Setting (mHz) 1 Mode Setting Continuous Intensity Setting (w/cm2) 1.2 PT-OP-T Assessment and Plan Start: 11/14/18 08:11 Freq: Status: Active Protocol: Document 11/23/18 08:15 EA (Rec: 11/23/18 08:18 EA [id number]) Physical Therapy Assessment Assessment Summary Assessment PT tolerated treatment with minor discomfort toward ER. Progress as tolerated. Physical Therapy Plan Next Visit Focus/Plan Next Note Type Treatment Note Next Visit Plan Advance as tolerated.
--- NOTE | 2018-11-28 13:44 | PT.OTN ---
Current Diagnoses Pain in left shoulder (11/28/18) Physical Therapy Treatment Note PT-OP-A Visit Information Start: 11/14/18 08:11 Freq: Status: Active Protocol: Document 11/28/18 10:00 EA (Rec: 11/28/18 13:44 EA [id number]) Out-Patient Physical Therapy Visit Information Visit Information Visit Type Treatment Note Visit Start Time 07:30 Visit Stop Time 08:25 Total Visit Minutes 53 Visit Number 5 PT-OP-B Current Condition Start: 11/14/18 08:11 Freq: Status: Active Protocol: Document 11/15/18 07:30 EA (Rec: 11/15/18 07:53 EA [id number]) Current Condition History of Current Condition Onset Date 1 1/2 month ago Current Complaints Left shoulder pain History of Current Condition Present condition started 1 1/ 2 month ago with no known reason; states pain gradually developed and aggravated with shoulder internal rotation and adduction like wearing under shirt of jacket. He mentioned that she has a side table drawer on the left side that she thinks aggravated most when opening and closing it. She denies pain at night. Patient reports no recent x- ray performed. She does go to chiropractor once a month and massage therapist with good results. Prescribed anti- inflammatory meds helps her to managed pain. Prior Treatments and Tests Chiropractor and massage therapist treament once month. Future Testing and Treatments Planned None identified. Treatment Goals Patient/Caregiver Goals Patient would like to get rid of the pain. Prior Functional Status Baseline Function- ADL's Independent Baseline Function- Mobility Independent Baseline Function- Work/School No limitation at work 1 1/2 month ago Baseline Function- Recreation/Hobbies Did not mentioned any recreational activities or hobbies. Current Functional Impairments (Reported) Functional Limitations- ADL's Indep with limitation in overhead, donning and doffing clothings. 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 Difficulty with closing and opening left side table drawer Functional Limitations- Recreation/ No mentioned recreation and Hobbies hobbies Functional Limitations- Other None Personal Factors Other Personal Factors That May Effect Chron's disease Therapy/Recovery PT-OP-C Subjective Start: 11/14/18 08:11 Freq: Status: Active Protocol: Document 11/28/18 10:00 EA (Rec: 11/28/18 13:44 EA [id number]) OP-PT Subjective Patient Comments Patient Comments Patient reports both shoulder are quite sore today; states complaint with HEP. She denies pain at sleep. PT-OP-E Functional Tests Start: 11/14/18 08:11 Freq: Status: Active Protocol: Document 11/15/18 07:30 EA (Rec: 11/15/18 07:53 EA [id number]) Functional Tests Apley's Scratch Test Action 1: The subject is instructed to touch the opposite shoulder with his/her hand. This motion checks Glenohumeral adduction, internal rotation , horizontal adduction and scapular protraction Action 2: The subject is instructed to place his/her arm overhead and reach behind the neck to touch his/her upper back. This motion checks Glenohumeral abduction, external rotation and scapular upward rotation and elevation. Action 3: The subject puts his/her hand on the lower back and reaches upward as far as possible. This motion checks glenohumeral adduction, internal rotation and scapular retraction with downward rotation Action 1- Left able Action 1- Right able Action 2- Left T4 Action 2- Right T6 Action 3- Left T8 Action 3- Right T4 PT-OP-F Manual Assessment Start: 11/14/18 08:11 Freq: Status: Active Protocol: Document 11/15/18 07:30 EA (Rec: 11/15/18 07:53 EA [id number]) Manual Assessments Soft Tissue Assessment Soft Tissue Mobility Assessment Pectorals, Left upper traps. Joint Mobility Assessment Joint Mobility Assessment Normal PT-OP-J Posture/Palpation/Skin Start: 11/14/18 08:11 Freq: Status: Active Protocol: Document 11/15/18 07:30 EA (Rec: 11/15/18 07:53 EA [id number]) Posture Evaluation Comments Posture Comments Slight forward head rouded shoulder with left shoulder slightly elevated. Palpation Assessment Location One Palpation Location Left upper traps, Teres Minor, Infraspinatus Palpation Findings Tenderness PT-OP-K Range of Motion Start: 11/14/18 08:11 Freq: Status: Active Protocol: Document 11/15/18 07:30 EA (Rec: 11/15/18 07:53 EA [id number]) Shoulder Goniometric Range of Motion Shoulder Measured in Degrees Right Active Shoulder ROM WFL Yes Left Active Flexion 180 Extension 60 Abduction 180 External Rotation at 90 degrees 70 Abduction Internal Rotation Behind Back (text) 40 PT-OP-L Special Tests Start: 11/14/18 08:11 Freq: Status: Active Protocol: Document 11/15/18 07:30 EA (Rec: 11/15/18 07:53 EA [id number]) Special Tests Shoulder Special Tests Yergason's Biceps Test Results - Posterior Impingement Test Results + Lift-Off Rotator Cuff Test Results + Empty Can Test Results sensitive Fregoso Impingement Test Results + Elevation Impingement Test Results + PT-OP-M Strength Start: 11/14/18 08:11 Freq: Status: Active Protocol: Document 11/15/18 07:30 EA (Rec: 11/15/18 07:53 EA [id number]) Shoulder Strength Shoulder Manual Muscle Testing Right Reason Not Measured WFL Left Flexion 4 Good Extension 5 Normal Abduction (C5) 4 Good Adduction 5 Normal External Rotation 4- Good- Internal Rotation 4- Good- Comments Pain with resisted ER PT-OP-Q Treatments Start: 11/14/18 08:11 Freq: Status: Active Protocol: Document 11/28/18 10:00 EA (Rec: 11/28/18 13:44 EA [id number]) Cardio Equipment Upper Body Ergometer (UBE) Duration (Minutes) 5 RPM 11 Height 5 Gym Equipment Cable Column (Body Solid) Rows Resistance 10-20# Reps/Time x 15 reps Therapeutic Exercises Prone Exercises 1 Prone Exercise Name T-bal shoulder T and Y Resistance 1-2# Reps/Minutes x 15 reps Sidelying Exercises 3 Sidelying Exercise Name Horiz ABD Side left Resistance 1# Reps/Minutes x 15 reps 2 Sidelying Exercise Name Abduction Side left Resistance 1-2# Reps/Minutes x15 reps x 2 1 Sidelying Exercise Name ER Side left Reps/Minutes x15 reps Standing Exercises 4 Standing Exercise Name Body blade: lower, mid, upper Reps/Minutes fatigue each range 3 Standing Exercise Name DB front and side raises Resistance x1-2# Reps/Minutes x 12 reps x 2 2 Standing Exercise Name wall posture T-bar flexion Resistance #2 1 Standing Exercise Name T-bar shoulder ext Side bilateral Resistance 2# Reps/Minutes x 15 reps Manual Therapy Treatment Soft Tissue Mobilization 1 Body Location Posterior left shoulder Mobilization Type Cross-Friction Myofascial Release Rolling Intensity/Depth Moderate Body Position Sidelying PT-OP-R Modalities Start: 11/14/18 08:11 Freq: Status: Active Protocol: Document 11/28/18 10:00 EA (Rec: 11/28/18 13:44 EA [id number]) Electric Stimulation Electric Stimulation Interferential Current (IFC) Body Location Post left shoulder/ Infra, Supra Duration (Minutes) 15 Contraction Type Normal Combined With Heat/Cold Cold Pack Ultrasound Therapy Treatment Left Posterior Shoulder Treatment Duration (minutes) 5 Patient Position Sidelying Coupling Medium Ultrasound Gel Frequency Setting (mHz) 1 Mode Setting Continuous Intensity Setting (w/cm2) 1.2 PT-OP-T Assessment and Plan Start: 11/14/18 08:11 Freq: Status: Active Protocol: Document 11/28/18 10:00 EA (Rec: 11/28/18 13:44 EA [id number]) Physical Therapy Assessment Assessment Summary Assessment No noted signs of discomfort with all standing exercises; cripitus noted with SLHoriz abduction. Physical Therapy Plan Next Visit Focus/Plan Next Note Type Treatment Note Next Visit Plan Adavance as tolerated.
--- NOTE | 2018-11-30 09:47 | PT.OTN ---
Current Diagnoses Pain in left shoulder (11/30/18) Physical Therapy Treatment Note PT-OP-A Visit Information Start: 11/14/18 08:11 Freq: Status: Active Protocol: Document 11/30/18 09:38 EA (Rec: 11/30/18 09:47 EA [id number]) Out-Patient Physical Therapy Visit Information Visit Information Visit Type Treatment Note Visit Start Time 07:30 Visit Stop Time 08:25 Total Visit Minutes 53 Visit Number 6 PT-OP-B Current Condition Start: 11/14/18 08:11 Freq: Status: Active Protocol: Document 11/15/18 07:30 EA (Rec: 11/15/18 07:53 EA [id number]) Current Condition History of Current Condition Onset Date 1 1/2 month ago Current Complaints Left shoulder pain History of Current Condition Present condition started 1 1/ 2 month ago with no known reason; states pain gradually developed and aggravated with shoulder internal rotation and adduction like wearing under shirt of jacket. He mentioned that she has a side table drawer on the left side that she thinks aggravated most when opening and closing it. She denies pain at night. Patient reports no recent x- ray performed. She does go to chiropractor once a month and massage therapist with good results. Prescribed anti- inflammatory meds helps her to managed pain. Prior Treatments and Tests Chiropractor and massage therapist treament once month. Future Testing and Treatments Planned None identified. Treatment Goals Patient/Caregiver Goals Patient would like to get rid of the pain. Prior Functional Status Baseline Function- ADL's Independent Baseline Function- Mobility Independent Baseline Function- Work/School No limitation at work 1 1/2 month ago Baseline Function- Recreation/Hobbies Did not mentioned any recreational activities or hobbies. Current Functional Impairments (Reported) Functional Limitations- ADL's Indep with limitation in overhead, donning and doffing clothings. 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 Difficulty with closing and opening left side table drawer Functional Limitations- Recreation/ No mentioned recreation and Hobbies hobbies Functional Limitations- Other None Personal Factors Other Personal Factors That May Effect Chron's disease Therapy/Recovery PT-OP-C Subjective Start: 11/14/18 08:11 Freq: Status: Active Protocol: Document 11/30/18 09:38 EA (Rec: 11/30/18 09:47 EA [id number]) OP-PT Subjective Patient Comments Patient Comments Pt reports less frequent pain; states pain increased this morning while reaching for light switch. PT-OP-E Functional Tests Start: 11/14/18 08:11 Freq: Status: Active Protocol: Document 11/15/18 07:30 EA (Rec: 11/15/18 07:53 EA [id number]) Functional Tests Apley's Scratch Test Action 1: The subject is instructed to touch the opposite shoulder with his/her hand. This motion checks Glenohumeral adduction, internal rotation , horizontal adduction and scapular protraction Action 2: The subject is instructed to place his/her arm overhead and reach behind the neck to touch his/her upper back. This motion checks Glenohumeral abduction, external rotation and scapular upward rotation and elevation. Action 3: The subject puts his/her hand on the lower back and reaches upward as far as possible. This motion checks glenohumeral adduction, internal rotation and scapular retraction with downward rotation Action 1- Left able Action 1- Right able Action 2- Left T4 Action 2- Right T6 Action 3- Left T8 Action 3- Right T4 PT-OP-F Manual Assessment Start: 11/14/18 08:11 Freq: Status: Active Protocol: Document 11/15/18 07:30 EA (Rec: 11/15/18 07:53 EA [id number]) Manual Assessments Soft Tissue Assessment Soft Tissue Mobility Assessment Pectorals, Left upper traps. Joint Mobility Assessment Joint Mobility Assessment Normal PT-OP-J Posture/Palpation/Skin Start: 11/14/18 08:11 Freq: Status: Active Protocol: Document 11/15/18 07:30 EA (Rec: 11/15/18 07:53 EA [id number]) Posture Evaluation Comments Posture Comments Slight forward head rouded shoulder with left shoulder slightly elevated. Palpation Assessment Location One Palpation Location Left upper traps, Teres Minor, Infraspinatus Palpation Findings Tenderness PT-OP-K Range of Motion Start: 11/14/18 08:11 Freq: Status: Active Protocol: Document 11/15/18 07:30 EA (Rec: 11/15/18 07:53 EA [id number]) Shoulder Goniometric Range of Motion Shoulder Measured in Degrees Right Active Shoulder ROM WFL Yes Left Active Flexion 180 Extension 60 Abduction 180 External Rotation at 90 degrees 70 Abduction Internal Rotation Behind Back (text) 40 PT-OP-L Special Tests Start: 11/14/18 08:11 Freq: Status: Active Protocol: Document 11/15/18 07:30 EA (Rec: 11/15/18 07:53 EA [id number]) Special Tests Shoulder Special Tests Yergason's Biceps Test Results - Posterior Impingement Test Results + Lift-Off Rotator Cuff Test Results + Empty Can Test Results sensitive Fregoso Impingement Test Results + Elevation Impingement Test Results + PT-OP-M Strength Start: 11/14/18 08:11 Freq: Status: Active Protocol: Document 11/15/18 07:30 EA (Rec: 11/15/18 07:53 EA [id number]) Shoulder Strength Shoulder Manual Muscle Testing Right Reason Not Measured WFL Left Flexion 4 Good Extension 5 Normal Abduction (C5) 4 Good Adduction 5 Normal External Rotation 4- Good- Internal Rotation 4- Good- Comments Pain with resisted ER PT-OP-Q Treatments Start: 11/14/18 08:11 Freq: Status: Active Protocol: Document 11/30/18 09:38 EA (Rec: 11/30/18 09:47 EA [id number]) Cardio Equipment Upper Body Ergometer (UBE) Duration (Minutes) 5 RPM 11 Height 7 Other no pain: backward/fwd Gym Equipment Cable Column (Body Solid) Rows Details increased pain a 20# Resistance 10-# Reps/Time x 15 reps Therapeutic Exercises Sidelying Exercises 3 Sidelying Exercise Name Horiz ABD Side left Resistance 2# Reps/Minutes x 15 reps 2 Sidelying Exercise Name Abduction Side left Resistance 1-2# Reps/Minutes x15 reps x 2 1 Sidelying Exercise Name ER Side left Resistance 2# Reps/Minutes x15 reps Standing Exercises 4 Standing Exercise Name Body blade: lower, mid, upper Reps/Minutes fatigue each range 3 Standing Exercise Name DB front and side raises Resistance x1-2# Reps/Minutes x 12 reps x 2 1 Standing Exercise Name T-bar shoulder ext Side bilateral Resistance 2# Reps/Minutes x 15 reps x 2 Manual Therapy Treatment Soft Tissue Mobilization 1 Body Location Anterior left shoulder Mobilization Type Cross-Friction Myofascial Release Rolling Intensity/Depth Moderate Body Position Sidelying PT-OP-R Modalities Start: 11/14/18 08:11 Freq: Status: Active Protocol: Document 11/30/18 09:38 EA (Rec: 11/30/18 09:47 EA [id number]) Hot Pack/Cold Pack Treatment Cold Pack Location Left shoulder/ant Patient Position Hooklying Treatment Duration (minutes) 15 Patient Tolerance Good Ultrasound Therapy Treatment Left Anterior Shoulder Treatment Duration (minutes) 5 Patient Position Supine Coupling Medium Ultrasound Gel Frequency Setting (mHz) 1 Intensity Setting (w/cm2) 1.2 Left Posterior Shoulder Treatment Duration (minutes) 5 Patient Position Sidelying Coupling Medium Ultrasound Gel Frequency Setting (mHz) 1 Mode Setting Continuous Intensity Setting (w/cm2) 1.2 PT-OP-T Assessment and Plan Start: 11/14/18 08:11 Freq: Status: Active Protocol: Document 11/30/18 09:38 EA (Rec: 11/30/18 09:47 EA [id number]) Physical Therapy Assessment Assessment Summary Assessment Tests performed and reveals with positive Yegarson's and Fregoso test. Advised patient refrain with all heavy lifting to left side even at low shoulder level. recommended to perform HEP AROM of the shoulders. Physical Therapy Plan Next Visit Focus/Plan Next Note Type Treatment Note Next Visit Plan Progress as tolerated
--- NOTE | 2018-12-05 09:10 | PT.OTN ---
Current Diagnoses Pain in left shoulder (12/05/18) Physical Therapy Treatment Note PT-OP-A Visit Information Start: 11/14/18 08:11 Freq: Status: Active Protocol: Document 12/05/18 08:56 EA (Rec: 12/05/18 09:00 EA [id number]) Out-Patient Physical Therapy Visit Information Visit Information Visit Type Treatment Note Visit Start Time 07:30 Visit Stop Time 08:25 Total Visit Minutes 55 Visit Number 7 PT-OP-B Current Condition Start: 11/14/18 08:11 Freq: Status: Active Protocol: Document 11/15/18 07:30 EA (Rec: 11/15/18 07:53 EA [id number]) Current Condition History of Current Condition Onset Date 1 1/2 month ago Current Complaints Left shoulder pain History of Current Condition Present condition started 1 1/ 2 month ago with no known reason; states pain gradually developed and aggravated with shoulder internal rotation and adduction like wearing under shirt of jacket. He mentioned that she has a side table drawer on the left side that she thinks aggravated most when opening and closing it. She denies pain at night. Patient reports no recent x- ray performed. She does go to chiropractor once a month and massage therapist with good results. Prescribed anti- inflammatory meds helps her to managed pain. Prior Treatments and Tests Chiropractor and massage therapist treament once month. Future Testing and Treatments Planned None identified. Treatment Goals Patient/Caregiver Goals Patient would like to get rid of the pain. Prior Functional Status Baseline Function- ADL's Independent Baseline Function- Mobility Independent Baseline Function- Work/School No limitation at work 1 1/2 month ago Baseline Function- Recreation/Hobbies Did not mentioned any recreational activities or hobbies. Current Functional Impairments (Reported) Functional Limitations- ADL's Indep with limitation in overhead, donning and doffing clothings. 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 Difficulty with closing and opening left side table drawer Functional Limitations- Recreation/ No mentioned recreation and Hobbies hobbies Functional Limitations- Other None Personal Factors Other Personal Factors That May Effect Chron's disease Therapy/Recovery PT-OP-C Subjective Start: 11/14/18 08:11 Freq: Status: Active Protocol: Document 12/05/18 08:56 EA (Rec: 12/05/18 09:00 EA [id number]) OP-PT Subjective Patient Comments Patient Comments Pt admitted unable to perform HEP due to work schedule; denies pain at rest only with extreme motion. PT-OP-E Functional Tests Start: 11/14/18 08:11 Freq: Status: Active Protocol: Document 11/15/18 07:30 EA (Rec: 11/15/18 07:53 EA [id number]) Functional Tests Apley's Scratch Test Action 1: The subject is instructed to touch the opposite shoulder with his/her hand. This motion checks Glenohumeral adduction, internal rotation , horizontal adduction and scapular protraction Action 2: The subject is instructed to place his/her arm overhead and reach behind the neck to touch his/her upper back. This motion checks Glenohumeral abduction, external rotation and scapular upward rotation and elevation. Action 3: The subject puts his/her hand on the lower back and reaches upward as far as possible. This motion checks glenohumeral adduction, internal rotation and scapular retraction with downward rotation Action 1- Left able Action 1- Right able Action 2- Left T4 Action 2- Right T6 Action 3- Left T8 Action 3- Right T4 PT-OP-F Manual Assessment Start: 11/14/18 08:11 Freq: Status: Active Protocol: Document 11/15/18 07:30 EA (Rec: 11/15/18 07:53 EA [id number]) Manual Assessments Soft Tissue Assessment Soft Tissue Mobility Assessment Pectorals, Left upper traps. Joint Mobility Assessment Joint Mobility Assessment Normal PT-OP-J Posture/Palpation/Skin Start: 11/14/18 08:11 Freq: Status: Active Protocol: Document 11/15/18 07:30 EA (Rec: 11/15/18 07:53 EA [id number]) Posture Evaluation Comments Posture Comments Slight forward head rouded shoulder with left shoulder slightly elevated. Palpation Assessment Location One Palpation Location Left upper traps, Teres Minor, Infraspinatus Palpation Findings Tenderness PT-OP-K Range of Motion Start: 11/14/18 08:11 Freq: Status: Active Protocol: Document 11/15/18 07:30 EA (Rec: 11/15/18 07:53 EA [id number]) Shoulder Goniometric Range of Motion Shoulder Measured in Degrees Right Active Shoulder ROM WFL Yes Left Active Flexion 180 Extension 60 Abduction 180 External Rotation at 90 degrees 70 Abduction Internal Rotation Behind Back (text) 40 PT-OP-L Special Tests Start: 11/14/18 08:11 Freq: Status: Active Protocol: Document 11/15/18 07:30 EA (Rec: 11/15/18 07:53 EA [id number]) Special Tests Shoulder Special Tests Yergason's Biceps Test Results - Posterior Impingement Test Results + Lift-Off Rotator Cuff Test Results + Empty Can Test Results sensitive Fregoso Impingement Test Results + Elevation Impingement Test Results + PT-OP-M Strength Start: 11/14/18 08:11 Freq: Status: Active Protocol: Document 11/15/18 07:30 EA (Rec: 11/15/18 07:53 EA [id number]) Shoulder Strength Shoulder Manual Muscle Testing Right Reason Not Measured WFL Left Flexion 4 Good Extension 5 Normal Abduction (C5) 4 Good Adduction 5 Normal External Rotation 4- Good- Internal Rotation 4- Good- Comments Pain with resisted ER PT-OP-Q Treatments Start: 11/14/18 08:11 Freq: Status: Active Protocol: Document 12/05/18 08:56 EA (Rec: 12/05/18 09:00 EA [id number]) Cardio Equipment Upper Body Ergometer (UBE) Duration (Minutes) 5 RPM 11 Height 7 Gym Equipment Cable Column (Body Solid) Rows Details increased pain a 20# Resistance 10-20# Reps/Time x 15 reps Therapeutic Exercises Prone Exercises 1 Prone Exercise Name T-bal shoulder T and Y Resistance 1-2# Reps/Minutes x 12 x2 sets Sidelying Exercises 3 Sidelying Exercise Name Horiz ABD Side left Resistance 2# Reps/Minutes x 15 reps 2 Sidelying Exercise Name Abduction Side left Resistance 1-2# Reps/Minutes x15 reps x 2 1 Sidelying Exercise Name ER Side left Resistance 2# Reps/Minutes x15 reps Standing Exercises 4 Standing Exercise Name Body blade: lower, mid, upper Reps/Minutes fatigue each range 3 Standing Exercise Name DB front and side raises Resistance x1-2# Reps/Minutes x 12 reps x 2 2 Standing Exercise Name wall posture T-bar flexion Resistance #2 1 Standing Exercise Name T-bar shoulder ext Side bilateral Resistance 2# Reps/Minutes x 15 reps x 2 Manual Therapy Treatment Soft Tissue Mobilization 1 Body Location Anterior left shoulder Mobilization Type Cross-Friction Myofascial Release Rolling Intensity/Depth Moderate Body Position Supine PT-OP-R Modalities Start: 11/14/18 08:11 Freq: Status: Active Protocol: Document 12/05/18 08:56 EA (Rec: 12/05/18 09:00 EA [id number]) Hot Pack/Cold Pack Treatment Cold Pack Location Left shoulder/ant Patient Position Hooklying Treatment Duration (minutes) 15 Patient Tolerance Good Ultrasound Therapy Treatment Left Anterior Shoulder Treatment Duration (minutes) 5 Patient Position Supine Coupling Medium Ultrasound Gel Frequency Setting (mHz) 1 Intensity Setting (w/cm2) 1.2 PT-OP-T Assessment and Plan Start: 11/14/18 08:11 Freq: Status: Active Protocol: Document 12/05/18 08:56 EA (Rec: 12/05/18 09:00 EA [id number]) Physical Therapy Assessment Assessment Summary Assessment Decreased c/o pain during therex with maintain ROM; patient cont. to progress. Physical Therapy Plan Next Visit Focus/Plan Next Note Type Treatment Note Next Visit Plan Progress as tolerated
--- NOTE | 2018-12-19 09:10 | PT.OTN ---
Current Diagnoses Pain in left shoulder (12/19/18) Physical Therapy Treatment Note PT-OP-A Visit Information Start: 11/14/18 08:11 Freq: Status: Active Protocol: Document 12/19/18 09:03 SA (Rec: 12/19/18 09:10 SA [id number]) Out-Patient Physical Therapy Visit Information Visit Information Visit Type Treatment Note Visit Start Time 07:30 Visit Stop Time 08:20 Total Visit Minutes 50 Visit Number 8 PT-OP-B Current Condition Start: 11/14/18 08:11 Freq: Status: Active Protocol: Document 11/15/18 07:30 EA (Rec: 11/15/18 07:53 EA [id number]) Current Condition History of Current Condition Onset Date 1 1/2 month ago Current Complaints Left shoulder pain History of Current Condition Present condition started 1 1/ 2 month ago with no known reason; states pain gradually developed and aggravated with shoulder internal rotation and adduction like wearing under shirt of jacket. He mentioned that she has a side table drawer on the left side that she thinks aggravated most when opening and closing it. She denies pain at night. Patient reports no recent x- ray performed. She does go to chiropractor once a month and massage therapist with good results. Prescribed anti- inflammatory meds helps her to managed pain. Prior Treatments and Tests Chiropractor and massage therapist treament once month. Future Testing and Treatments Planned None identified. Treatment Goals Patient/Caregiver Goals Patient would like to get rid of the pain. Prior Functional Status Baseline Function- ADL's Independent Baseline Function- Mobility Independent Baseline Function- Work/School No limitation at work 1 1/2 month ago Baseline Function- Recreation/Hobbies Did not mentioned any recreational activities or hobbies. Current Functional Impairments (Reported) Functional Limitations- ADL's Indep with limitation in overhead, donning and doffing clothings. 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 Difficulty with closing and opening left side table drawer Functional Limitations- Recreation/ No mentioned recreation and Hobbies hobbies Functional Limitations- Other None Personal Factors Other Personal Factors That May Effect Chron's disease Therapy/Recovery PT-OP-C Subjective Start: 11/14/18 08:11 Freq: Status: Active Protocol: Document 12/19/18 09:03 SA (Rec: 12/19/18 09:10 SA [id number]) OP-PT Subjective Patient Comments Patient Comments Pt reports feeling good, donning shirt and bra no longer painful and was able to do HEP more consistently. PT-OP-E Functional Tests Start: 11/14/18 08:11 Freq: Status: Active Protocol: Document 11/15/18 07:30 EA (Rec: 11/15/18 07:53 EA [id number]) Functional Tests Apley's Scratch Test Action 1: The subject is instructed to touch the opposite shoulder with his/her hand. This motion checks Glenohumeral adduction, internal rotation , horizontal adduction and scapular protraction Action 2: The subject is instructed to place his/her arm overhead and reach behind the neck to touch his/her upper back. This motion checks Glenohumeral abduction, external rotation and scapular upward rotation and elevation. Action 3: The subject puts his/her hand on the lower back and reaches upward as far as possible. This motion checks glenohumeral adduction, internal rotation and scapular retraction with downward rotation Action 1- Left able Action 1- Right able Action 2- Left T4 Action 2- Right T6 Action 3- Left T8 Action 3- Right T4 PT-OP-F Manual Assessment Start: 11/14/18 08:11 Freq: Status: Active Protocol: Document 11/15/18 07:30 EA (Rec: 11/15/18 07:53 EA [id number]) Manual Assessments Soft Tissue Assessment Soft Tissue Mobility Assessment Pectorals, Left upper traps. Joint Mobility Assessment Joint Mobility Assessment Normal PT-OP-J Posture/Palpation/Skin Start: 11/14/18 08:11 Freq: Status: Active Protocol: Document 11/15/18 07:30 EA (Rec: 11/15/18 07:53 EA [id number]) Posture Evaluation Comments Posture Comments Slight forward head rouded shoulder with left shoulder slightly elevated. Palpation Assessment Location One Palpation Location Left upper traps, Teres Minor, Infraspinatus Palpation Findings Tenderness PT-OP-K Range of Motion Start: 11/14/18 08:11 Freq: Status: Active Protocol: Document 11/15/18 07:30 EA (Rec: 11/15/18 07:53 EA [id number]) Shoulder Goniometric Range of Motion Shoulder Measured in Degrees Right Active Shoulder ROM WFL Yes Left Active Flexion 180 Extension 60 Abduction 180 External Rotation at 90 degrees 70 Abduction Internal Rotation Behind Back (text) 40 PT-OP-L Special Tests Start: 11/14/18 08:11 Freq: Status: Active Protocol: Document 11/15/18 07:30 EA (Rec: 11/15/18 07:53 EA [id number]) Special Tests Shoulder Special Tests Yergason's Biceps Test Results - Posterior Impingement Test Results + Lift-Off Rotator Cuff Test Results + Empty Can Test Results sensitive Fregoso Impingement Test Results + Elevation Impingement Test Results + PT-OP-M Strength Start: 11/14/18 08:11 Freq: Status: Active Protocol: Document 11/15/18 07:30 EA (Rec: 11/15/18 07:53 EA [id number]) Shoulder Strength Shoulder Manual Muscle Testing Right Reason Not Measured WFL Left Flexion 4 Good Extension 5 Normal Abduction (C5) 4 Good Adduction 5 Normal External Rotation 4- Good- Internal Rotation 4- Good- Comments Pain with resisted ER PT-OP-Q Treatments Start: 11/14/18 08:11 Freq: Status: Active Protocol: Document 12/19/18 09:03 SA (Rec: 12/19/18 09:10 SA [email or web address]) Cardio Equipment Upper Body Ergometer (UBE) Duration (Minutes) 5 RPM 11 Height 7 Gym Equipment Cable Column (Body Solid) Rows Resistance 10-20# Reps/Time x 15 reps Therapeutic Exercises Prone Exercises 1 Prone Exercise Name T-bal shoulder T and Y Resistance 1-2# Reps/Minutes x 12 x2 sets Sidelying Exercises 2 Sidelying Exercise Name Abduction Side left Resistance 1-2# Reps/Minutes x15 reps x 2 1 Sidelying Exercise Name ER Side left Resistance 2# Reps/Minutes x15 reps Standing Exercises 4 Standing Exercise Name Body blade: lower, mid, upper Reps/Minutes fatigue each range 3 Standing Exercise Name DB front and side raises Resistance x1-2# Reps/Minutes x 12 reps x 2 2 Standing Exercise Name wall posture T-bar flexion Resistance #2 1 Standing Exercise Name T-bar shoulder ext Side bilateral Resistance 2# Reps/Minutes x 15 reps x 2 Manual Therapy Treatment Soft Tissue Mobilization 1 Body Location Anterior left shoulder Mobilization Type Cross-Friction Myofascial Release Rolling Intensity/Depth Moderate Body Position Supine PT-OP-R Modalities Start: 11/14/18 08:11 Freq: Status: Active Protocol: Document 12/19/18 09:03 SA (Rec: 12/19/18 09:10 SA [id number]) Hot Pack/Cold Pack Treatment Cold Pack Location Left shoulder/ant Patient Position Hooklying Treatment Duration (minutes) 15 Patient Tolerance Good Ultrasound Therapy Treatment Left Anterior Shoulder Treatment Duration (minutes) 5 Patient Position Supine Coupling Medium Ultrasound Gel Frequency Setting (mHz) 1 Intensity Setting (w/cm2) 1.2 PT-OP-T Assessment and Plan Start: 11/14/18 08:11 Freq: Status: Active Protocol: Document 12/19/18 09:03 SA (Rec: 12/19/18 09:10 [email or web address]) Physical Therapy Assessment Progress Towards Goals Progress Towards Goals Progressing Toward Goals Progress Comments Improved ability with ADLs Assessment Summary Assessment Pt tolerating ther ex well with fatigue rather than pain. Consistent with HEP and decreasing sx overall. Physical Therapy Plan Next Visit Focus/Plan Next Note Type Treatment Note Next Visit Plan Cont to progress strengthening program as tolerated.
--- NOTE | 2018-12-21 17:10 | PT.OTN ---
Current Diagnoses Pain in left shoulder (12/21/18) Physical Therapy Treatment Note PT-OP-A Visit Information Start: 11/14/18 08:11 Freq: Status: Active Protocol: Document 12/19/18 09:03 SA (Rec: 12/19/18 09:10 SA [email or web address]) Out-Patient Physical Therapy Visit Information Visit Information Visit Type Treatment Note Visit Start Time 07:30 Visit Stop Time 08:20 Total Visit Minutes 50 Visit Number 8 PT-OP-B Current Condition Start: 11/14/18 08:11 Freq: Status: Active Protocol: Document 11/15/18 07:30 EA (Rec: 11/15/18 07:53 EA [id number]) Current Condition History of Current Condition Onset Date 1 1/2 month ago Current Complaints Left shoulder pain History of Current Condition Present condition started 1 1/ 2 month ago with no known reason; states pain gradually developed and aggravated with shoulder internal rotation and adduction like wearing under shirt of jacket. He mentioned that she has a side table drawer on the left side that she thinks aggravated most when opening and closing it. She denies pain at night. Patient reports no recent x- ray performed. She does go to chiropractor once a month and massage therapist with good results. Prescribed anti- inflammatory meds helps her to managed pain. Prior Treatments and Tests Chiropractor and massage therapist treament once month. Future Testing and Treatments Planned None identified. Treatment Goals Patient/Caregiver Goals Patient would like to get rid of the pain. Prior Functional Status Baseline Function- ADL's Independent Baseline Function- Mobility Independent Baseline Function- Work/School No limitation at work 1 1/2 month ago Baseline Function- Recreation/Hobbies Did not mentioned any recreational activities or hobbies. Current Functional Impairments (Reported) Functional Limitations- ADL's Indep with limitation in overhead, donning and doffing clothings. 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 Difficulty with closing and opening left side table drawer Functional Limitations- Recreation/ No mentioned recreation and Hobbies hobbies Functional Limitations- Other None Personal Factors Other Personal Factors That May Effect Chron's disease Therapy/Recovery PT-OP-C Subjective Start: 11/14/18 08:11 Freq: Status: Active Protocol: Document 12/21/18 17:03 AMH (Rec: 12/21/18 17:10 AMH [email or web address]) OP-PT Subjective Patient Comments Patient Comments Pt reports she feels her shoulder popping alot more these past few days PT-OP-E Functional Tests Start: 11/14/18 08:11 Freq: Status: Active Protocol: Document 11/15/18 07:30 EA (Rec: 11/15/18 07:53 EA [id number]) Functional Tests Apley's Scratch Test Action 1: The subject is instructed to touch the opposite shoulder with his/her hand. This motion checks Glenohumeral adduction, internal rotation , horizontal adduction and scapular protraction Action 2: The subject is instructed to place his/her arm overhead and reach behind the neck to touch his/her upper back. This motion checks Glenohumeral abduction, external rotation and scapular upward rotation and elevation. Action 3: The subject puts his/her hand on the lower back and reaches upward as far as possible. This motion checks glenohumeral adduction, internal rotation and scapular retraction with downward rotation Action 1- Left able Action 1- Right able Action 2- Left T4 Action 2- Right T6 Action 3- Left T8 Action 3- Right T4 PT-OP-F Manual Assessment Start: 11/14/18 08:11 Freq: Status: Active Protocol: Document 11/15/18 07:30 EA (Rec: 11/15/18 07:53 EA [id number]) Manual Assessments Soft Tissue Assessment Soft Tissue Mobility Assessment Pectorals, Left upper traps. Joint Mobility Assessment Joint Mobility Assessment Normal PT-OP-J Posture/Palpation/Skin Start: 11/14/18 08:11 Freq: Status: Active Protocol: Document 11/15/18 07:30 EA (Rec: 11/15/18 07:53 EA [id number]) Posture Evaluation Comments Posture Comments Slight forward head rouded shoulder with left shoulder slightly elevated. Palpation Assessment Location One Palpation Location Left upper traps, Teres Minor, Infraspinatus Palpation Findings Tenderness PT-OP-K Range of Motion Start: 11/14/18 08:11 Freq: Status: Active Protocol: Document 11/15/18 07:30 EA (Rec: 11/15/18 07:53 EA [id number]) Shoulder Goniometric Range of Motion Shoulder Measured in Degrees Right Active Shoulder ROM WFL Yes Left Active Flexion 180 Extension 60 Abduction 180 External Rotation at 90 degrees 70 Abduction Internal Rotation Behind Back (text) 40 PT-OP-L Special Tests Start: 11/14/18 08:11 Freq: Status: Active Protocol: Document 11/15/18 07:30 EA (Rec: 11/15/18 07:53 EA [id number]) Special Tests Shoulder Special Tests Yergason's Biceps Test Results - Posterior Impingement Test Results + Lift-Off Rotator Cuff Test Results + Empty Can Test Results sensitive Fregoso Impingement Test Results + Elevation Impingement Test Results + PT-OP-M Strength Start: 11/14/18 08:11 Freq: Status: Active Protocol: Document 11/15/18 07:30 EA (Rec: 11/15/18 07:53 EA [id number]) Shoulder Strength Shoulder Manual Muscle Testing Right Reason Not Measured WFL Left Flexion 4 Good Extension 5 Normal Abduction (C5) 4 Good Adduction 5 Normal External Rotation 4- Good- Internal Rotation 4- Good- Comments Pain with resisted ER PT-OP-Q Treatments Start: 11/14/18 08:11 Freq: Status: Active Protocol: Document 12/21/18 17:03 AMH (Rec: 12/21/18 17:10 AMH [email or web address]) Cardio Equipment Upper Body Ergometer (UBE) Duration (Minutes) 5 RPM 11 Height 7 Therapeutic Exercises Supine Exercises 2 Supine Exercise Name supine foam roll chest stretch Prone Exercises 1 Prone Exercise Name T-bal shoulder T and Y Resistance 1-2# Reps/Minutes x 12 x2 sets Sidelying Exercises 3 Sidelying Exercise Name Horiz ABD Side left Resistance 2# Reps/Minutes x 15 reps 2 Sidelying Exercise Name Abduction Side left Resistance 1-2# Reps/Minutes x15 reps x 2 1 Sidelying Exercise Name ER Side left Resistance 2# Reps/Minutes x15 reps Standing Exercises 3 Standing Exercise Name DB front and side raises Resistance x1-2# Reps/Minutes x 12 reps x 2 2 Standing Exercise Name wall posture T-bar flexion Resistance #2 1 Standing Exercise Name T-bar shoulder ext Side bilateral Resistance 2# Reps/Minutes x 15 reps x 2 Manual Therapy Treatment Manual Techniques 3 Type manual IR stretch 2 Type manual PNF D1 D2 1 Type posterior capsule stretch PT-OP-R Modalities Start: 11/14/18 08:11 Freq: Status: Active Protocol: Document 12/21/18 17:03 AMH (Rec: 12/21/18 17:10 [facility] [email or web address]) Hot Pack/Cold Pack Treatment Cold Pack Location Left shoulder/ant Patient Position Hooklying Treatment Duration (minutes) 15 Patient Tolerance Good PT-OP-T Assessment and Plan Start: 11/14/18 08:11 Freq: Status: Active Protocol: Document 12/21/18 17:03 AMH (Rec: 12/21/18 17:10 [facility] [email or web address]) Physical Therapy Assessment Assessment Summary Assessment added in IR stretch with strap and anterior chest stretching . Tolerated exercises well today. She has pain with end range flexion and abduction. T-spine tight so added in the foam roll Physical Therapy Plan Frequency and Duration Frequency of Treatment 2x/Week Duration of Treatment 8 wks Plan of Care Start Date 11/14/18 Plan of Care End Date 01/09/19 Next Visit Focus/Plan Next Note Type Treatment Note Next Visit Plan Cont to progress strengthening program as tolerated.
--- NOTE | 2018-12-26 16:52 | PT.OTN ---
Current Diagnoses Pain in left shoulder (12/26/18) Physical Therapy Treatment Note PT-OP-A Visit Information Start: 11/14/18 08:11 Freq: Status: Active Protocol: Document 12/26/18 16:45 AMH (Rec: 12/26/18 16:52 AMH [email or web address]) Out-Patient Physical Therapy Visit Information Visit Information Visit Type Treatment Note Visit Start Time 15:15 Visit Stop Time 16:00 Total Visit Minutes 50 Visit Number 10 PT-OP-B Current Condition Start: 11/14/18 08:11 Freq: Status: Active Protocol: Document 11/15/18 07:30 EA (Rec: 11/15/18 07:53 EA [id number]) Current Condition History of Current Condition Onset Date 1 1/2 month ago Current Complaints Left shoulder pain History of Current Condition Present condition started 1 1/ 2 month ago with no known reason; states pain gradually developed and aggravated with shoulder internal rotation and adduction like wearing under shirt of jacket. He mentioned that she has a side table drawer on the left side that she thinks aggravated most when opening and closing it. She denies pain at night. Patient reports no recent x- ray performed. She does go to chiropractor once a month and massage therapist with good results. Prescribed anti- inflammatory meds helps her to managed pain. Prior Treatments and Tests Chiropractor and massage therapist treament once month. Future Testing and Treatments Planned None identified. Treatment Goals Patient/Caregiver Goals Patient would like to get rid of the pain. Prior Functional Status Baseline Function- ADL's Independent Baseline Function- Mobility Independent Baseline Function- Work/School No limitation at work 1 1/2 month ago Baseline Function- Recreation/Hobbies Did not mentioned any recreational activities or hobbies. Current Functional Impairments (Reported) Functional Limitations- ADL's Indep with limitation in overhead, donning and doffing clothings. 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 Difficulty with closing and opening left side table drawer Functional Limitations- Recreation/ No mentioned recreation and Hobbies hobbies Functional Limitations- Other None Personal Factors Other Personal Factors That May Effect Chron's disease Therapy/Recovery PT-OP-C Subjective Start: 11/14/18 08:11 Freq: Status: Active Protocol: Document 12/26/18 16:45 AMH (Rec: 12/26/18 16:52 AMH [email or web address]) OP-PT Subjective Patient Comments Patient Comments Pt reports she was sore in her shoulder blade region for a few days after last treatment. PT-OP-E Functional Tests Start: 11/14/18 08:11 Freq: Status: Active Protocol: Document 11/15/18 07:30 EA (Rec: 11/15/18 07:53 EA [id number]) Functional Tests Apley's Scratch Test Action 1- Left able Action 1- Right able Action 2- Left T4 Action 2- Right T6 Action 3- Left T8 Action 3- Right T4 PT-OP-F Manual Assessment Start: 11/14/18 08:11 Freq: Status: Active Protocol: Document 11/15/18 07:30 EA (Rec: 11/15/18 07:53 EA [id number]) Manual Assessments Soft Tissue Assessment Soft Tissue Mobility Assessment Pectorals, Left upper traps. Joint Mobility Assessment Joint Mobility Assessment Normal PT-OP-J Posture/Palpation/Skin Start: 11/14/18 08:11 Freq: Status: Active Protocol: Document 11/15/18 07:30 EA (Rec: 11/15/18 07:53 EA [id number]) Posture Evaluation Comments Posture Comments Slight forward head rouded shoulder with left shoulder slightly elevated. Palpation Assessment Location One Palpation Location Left upper traps, Teres Minor, Infraspinatus Palpation Findings Tenderness PT-OP-K Range of Motion Start: 11/14/18 08:11 Freq: Status: Active Protocol: Document 11/15/18 07:30 EA (Rec: 11/15/18 07:53 EA [id number]) Shoulder Goniometric Range of Motion Shoulder Right Active Shoulder ROM WFL Yes Left Active Flexion 180 Extension 60 Abduction 180 External Rotation at 90 degrees 70 Abduction Internal Rotation Behind Back (text) 40 PT-OP-L Special Tests Start: 11/14/18 08:11 Freq: Status: Active Protocol: Document 11/15/18 07:30 EA (Rec: 11/15/18 07:53 EA [id number]) Special Tests Shoulder Special Tests Yergason's Biceps Test Results - Posterior Impingement Test Results + Lift-Off Rotator Cuff Test Results + Empty Can Test Results sensitive Fregoso Impingement Test Results + Elevation Impingement Test Results + PT-OP-M Strength Start: 11/14/18 08:11 Freq: Status: Active Protocol: Document 11/15/18 07:30 EA (Rec: 11/15/18 07:53 EA [id number]) Shoulder Strength Shoulder Manual Muscle Testing Right Reason Not Measured WFL Left Flexion 4 Good Extension 5 Normal Abduction (C5) 4 Good Adduction 5 Normal External Rotation 4- Good- Internal Rotation 4- Good- Comments Pain with resisted ER PT-OP-Q Treatments Start: 11/14/18 08:11 Freq: Status: Active Protocol: Document 12/26/18 16:45 AMH (Rec: 12/26/18 16:52 AMH [email or web address]) Cardio Equipment Upper Body Ergometer (UBE) Duration (Minutes) 5 RPM 11 Height 7 Therapeutic Exercises Supine Exercises 2 Supine Exercise Name supine foam roll chest stretch Prone Exercises 1 Prone Exercise Name T-bal shoulder T and Y Resistance 1-2# Reps/Minutes x 12 x2 sets Sidelying Exercises 3 Sidelying Exercise Name Horiz ABD Side left Resistance 2# Reps/Minutes x 15 reps 2 Sidelying Exercise Name Abduction Side left Resistance 1-2# Reps/Minutes x15 reps x 2 1 Sidelying Exercise Name ER Side left Resistance 2# Reps/Minutes x15 reps Standing Exercises 3 Standing Exercise Name DB front and side raises Resistance x1-2# Reps/Minutes x 12 reps x 2 2 Standing Exercise Name wall posture T-bar flexion Resistance #2 1 Standing Exercise Name T-bar shoulder ext Side bilateral Resistance 2# Reps/Minutes x 15 reps x 2 PT-OP-R Modalities Start: 11/14/18 08:11 Freq: Status: Active Protocol: Document 12/21/18 17:03 AMH (Rec: 12/21/18 17:10 AMH [email or web address]) Hot Pack/Cold Pack Treatment Cold Pack Location Left shoulder/ant Patient Position Hooklying Treatment Duration (minutes) 15 Patient Tolerance Good PT-OP-T Assessment and Plan Start: 11/14/18 08:11 Freq: Status: Active Protocol: Document 12/26/18 16:45 AMH (Rec: 12/26/18 16:52 AMH [email or web address]) Physical Therapy Assessment Assessment Summary Assessment foam roll stretch may have been what aggravated her thoracic region last visit. She was able to do this today but definatly felt tight with the half blue roll Physical Therapy Plan Frequency and Duration Frequency of Treatment 2x/Week Duration of Treatment 8 wks Plan of Care Start Date 11/14/18 Plan of Care End Date 01/09/19 Next Visit Focus/Plan Next Note Type Treatment Note Next Visit Plan Cont to progress strengthening program as tolerated.
--- NOTE | 2018-12-29 11:36 | PT.OTN ---
Current Diagnoses Pain in left shoulder (12/29/18) Physical Therapy Treatment Note PT-OP-A Visit Information Start: 11/14/18 08:11 Freq: Status: Active Protocol: Document 12/29/18 11:26 SA (Rec: 12/29/18 11:36 SA [email or web address]) Out-Patient Physical Therapy Visit Information Visit Information Visit Type Treatment Note Visit Start Time 09:00 Visit Stop Time 09:46 Total Visit Minutes 46 Visit Number 11 Number of STATION ATTENDANT Visits 1 PT-OP-B Current Condition Start: 11/14/18 08:11 Freq: Status: Active Protocol: Document 11/15/18 07:30 EA (Rec: 11/15/18 07:53 EA [id number]) Current Condition History of Current Condition Onset Date 1 1/2 month ago Current Complaints Left shoulder pain History of Current Condition Present condition started 1 1/ 2 month ago with no known reason; states pain gradually developed and aggravated with shoulder internal rotation and adduction like wearing under shirt of jacket. He mentioned that she has a side table drawer on the left side that she thinks aggravated most when opening and closing it. She denies pain at night. Patient reports no recent x- ray performed. She does go to chiropractor once a month and massage therapist with good results. Prescribed anti- inflammatory meds helps her to managed pain. Prior Treatments and Tests Chiropractor and massage therapist treament once month. Future Testing and Treatments Planned None identified. Treatment Goals Patient/Caregiver Goals Patient would like to get rid of the pain. Prior Functional Status Baseline Function- ADL's Independent Baseline Function- Mobility Independent Baseline Function- Work/School No limitation at work 1 1/2 month ago Baseline Function- Recreation/Hobbies Did not mentioned any recreational activities or hobbies. Current Functional Impairments (Reported) Functional Limitations- ADL's Indep with limitation in overhead, donning and doffing clothings. 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 Difficulty with closing and opening left side table drawer Functional Limitations- Recreation/ No mentioned recreation and Hobbies hobbies Functional Limitations- Other None Personal Factors Other Personal Factors That May Effect Chron's disease Therapy/Recovery PT-OP-C Subjective Start: 11/14/18 08:11 Freq: Status: Active Protocol: Document 12/29/18 11:26 SA (Rec: 12/29/18 11:36 SA [email or web address]) OP-PT Subjective Patient Comments Patient Comments Pt states her soreness at shoulder blade has decreased, able to do HEP on most days. PT-OP-E Functional Tests Start: 11/14/18 08:11 Freq: Status: Active Protocol: Document 11/15/18 07:30 EA (Rec: 11/15/18 07:53 EA [id number]) Functional Tests Apley's Scratch Test Action 1- Left able Action 1- Right able Action 2- Left T4 Action 2- Right T6 Action 3- Left T8 Action 3- Right T4 PT-OP-F Manual Assessment Start: 11/14/18 08:11 Freq: Status: Active Protocol: Document 11/15/18 07:30 EA (Rec: 11/15/18 07:53 EA [id number]) Manual Assessments Soft Tissue Assessment Soft Tissue Mobility Assessment Pectorals, Left upper traps. Joint Mobility Assessment Joint Mobility Assessment Normal PT-OP-J Posture/Palpation/Skin Start: 11/14/18 08:11 Freq: Status: Active Protocol: Document 11/15/18 07:30 EA (Rec: 11/15/18 07:53 EA [id number]) Posture Evaluation Comments Posture Comments Slight forward head rouded shoulder with left shoulder slightly elevated. Palpation Assessment Location One Palpation Location Left upper traps, Teres Minor, Infraspinatus Palpation Findings Tenderness PT-OP-K Range of Motion Start: 11/14/18 08:11 Freq: Status: Active Protocol: Document 11/15/18 07:30 EA (Rec: 11/15/18 07:53 EA [id number]) Shoulder Goniometric Range of Motion Shoulder Right Active Shoulder ROM WFL Yes Left Active Flexion 180 Extension 60 Abduction 180 External Rotation at 90 degrees 70 Abduction Internal Rotation Behind Back (text) 40 PT-OP-L Special Tests Start: 11/14/18 08:11 Freq: Status: Active Protocol: Document 11/15/18 07:30 EA (Rec: 11/15/18 07:53 EA [id number]) Special Tests Shoulder Special Tests Yergason's Biceps Test Results - Posterior Impingement Test Results + Lift-Off Rotator Cuff Test Results + Empty Can Test Results sensitive Fregoso Impingement Test Results + Elevation Impingement Test Results + PT-OP-M Strength Start: 11/14/18 08:11 Freq: Status: Active Protocol: Document 11/15/18 07:30 EA (Rec: 11/15/18 07:53 EA [id number]) Shoulder Strength Shoulder Manual Muscle Testing Right Reason Not Measured WFL Left Flexion 4 Good Extension 5 Normal Abduction (C5) 4 Good Adduction 5 Normal External Rotation 4- Good- Internal Rotation 4- Good- Comments Pain with resisted ER PT-OP-Q Treatments Start: 11/14/18 08:11 Freq: Status: Active Protocol: Document 12/29/18 11:26 SA (Rec: 12/29/18 11:36 SA [email or web address]) Cardio Equipment Upper Body Ergometer (UBE) Duration (Minutes) 5 RPM 11 Height 7 Therapeutic Exercises Supine Exercises 2 Supine Exercise Name supine-small towel rol Reps/Minutes 2 min Prone Exercises 1 Prone Exercise Name T-bal shoulder T and Y Resistance 2# Reps/Minutes x 12 x2 sets Sidelying Exercises 3 Sidelying Exercise Name Horiz ABD Side left Resistance 2# Reps/Minutes x 15 reps 2 Sidelying Exercise Name Abduction Side left Resistance 1-2# Reps/Minutes x15 reps x 2 1 Sidelying Exercise Name ER Side left Resistance 2# Reps/Minutes x15 reps Standing Exercises 4 Standing Exercise Name Body blade: lower, mid, upper Reps/Minutes fatigue each range 2 Standing Exercise Name wall posture T-bar flexion Resistance #2 Comments 2 x 15 1 Standing Exercise Name T-bar shoulder ext Side bilateral Resistance 2# Reps/Minutes x 15 reps x 2 Manual Therapy Treatment Soft Tissue Mobilization 1 Body Location B UT/Scalens Mobilization Type Cross-Friction Myofascial Release Rolling Intensity/Depth Moderate Body Position Supine Manual Techniques 3 Type manual IR stretch 1 Type posterior capsule stretch PT-OP-R Modalities Start: 11/14/18 08:11 Freq: Status: Active Protocol: Document 12/21/18 17:03 AMH (Rec: 12/21/18 17:10 AMH [email or web address]) Hot Pack/Cold Pack Treatment Cold Pack Location Left shoulder/ant Patient Position Hooklying Treatment Duration (minutes) 15 Patient Tolerance Good PT-OP-T Assessment and Plan Start: 11/14/18 08:11 Freq: Status: Active Protocol: Document 12/29/18 11:26 SA (Rec: 12/29/18 11:36 SA [email or web address]) Physical Therapy Assessment Assessment Summary Assessment Tried smaller towel roll for thoracic ext stretch, pt to assess tolerance. PT having decreased instances of L shoulder pain and tolerating exercise progressions well. Physical Therapy Plan Next Visit Focus/Plan Next Note Type Treatment Note Next Visit Plan Cont to progress strengthening program as tolerated. Pt leaves for vacation tomorrow, made follow up visit with primary upon return.
--- NOTE | 2019-01-16 09:41 | PT.OPPOC ---
Current Diagnoses Pain in left shoulder (01/16/19) Provider Visit Care Team Role Provider Type JAMAR Zelaya Attending Provider Advanced Can Cleaner Family Provider Primary Care Provider Specialty: Family Practice Address: [address] [place] [address], [facility] [place], [facility] Email: [email or web address] Plan Of Care PT-OP-T Assessment and Plan Start: 11/14/18 08:11 Freq: Status: Active Protocol: Document 01/16/19 08:11 EA (Rec: 01/16/19 08:16 EA [id number]) Physical Therapy Assessment Impairments Impairments Posture Strength Goals Four Impairment Impaired functioanal Appley's test Bladder Trimmer Goal (LTG) Patient will have normal functional reach behind with no increase in symptoms. LTG Duration Goal reached Three Impairment Impaired donning and doffing upper clothings [facility] Goal (LTG) Patient will jefferson and doff clothings with no pain and impairment. LTG Duration Goal reached Two Impairment quick Dash of 16 [facility] Goal (LTG) Patient will have quickDash results of < 10 LTG Duration 4 wks ( Improving) One Impairment NO HEP in place [facility] Goal (LTG) Patient will exhibit indep HEP . LTG Duration 4 wks (Improving) Progress Towards Goals Progress Towards Goals Progressing Toward Goals Assessment Summary Assessment Patient continued to show excellent improvement to her left shoulder; she denies constant pain and is having very less frequent pain. Assesement reveals slight strengthe deficit to shoulder strength otherwise very functional. Overall patient is very happy about her progress and would like to prevent recurrence. Patient will cont. to benefit with skilled PT with focus of advance exercises and transition for fitness exercises. Physical Therapy Plan Frequency and Duration Frequency of Treatment 1x/Week Duration of Treatment 6 wks Plan of Care Start Date 01/16/19 Plan of Care End Date 02/27/19 Next Visit Focus/Plan Next Note Type Treatment Note Next Visit Plan advance and discharge patient as needed Plan of Care Dates Plan of Care Start Date 01/16/19 Plan of Care End Date 02/27/19 Please Sign and Return: I have reviewed this Plan of Care and certify that the skilled therapy services above are required to meet the patient?s needs. Physician Signature Date Printed Name and Credentials Clinical Instructor Signature Printed Name and Credentials
--- NOTE | 2019-01-16 09:42 | PT.OTN ---
Current Diagnoses Pain in left shoulder (01/16/19) Physical Therapy Treatment Note PT-OP-A Visit Information Start: 11/14/18 08:11 Freq: Status: Active Protocol: Document 01/16/19 08:11 EA (Rec: 01/16/19 08:16 EA [id number]) Out-Patient Physical Therapy Visit Information Visit Information Visit Type Treatment Note Visit Note re-eval performed today Visit Start Time 07:30 Visit Stop Time 08:15 Total Visit Minutes 40 Visit Number 12 PT-OP-B Current Condition Start: 11/14/18 08:11 Freq: Status: Active Protocol: Document 11/15/18 07:30 EA (Rec: 11/15/18 07:53 EA [id number]) Current Condition History of Current Condition Onset Date 1 1/2 month ago Current Complaints Left shoulder pain History of Current Condition Present condition started 1 1/ 2 month ago with no known reason; states pain gradually developed and aggravated with shoulder internal rotation and adduction like wearing under shirt of jacket. He mentioned that she has a side table drawer on the left side that she thinks aggravated most when opening and closing it. She denies pain at night. Patient reports no recent x- ray performed. She does go to chiropractor once a month and massage therapist with good results. Prescribed anti- inflammatory meds helps her to managed pain. Prior Treatments and Tests Chiropractor and massage therapist treament once month. Future Testing and Treatments Planned None identified. Treatment Goals Patient/Caregiver Goals Patient would like to get rid of the pain. Prior Functional Status Baseline Function- ADL's Independent Baseline Function- Mobility Independent Baseline Function- Work/School No limitation at work 1 1/2 month ago Baseline Function- Recreation/Hobbies Did not mentioned any recreational activities or hobbies. Current Functional Impairments (Reported) Functional Limitations- ADL's Indep with limitation in overhead, donning and doffing clothings. 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 Difficulty with closing and opening left side table drawer Functional Limitations- Recreation/ No mentioned recreation and Hobbies hobbies Functional Limitations- Other None Personal Factors Other Personal Factors That May Effect Chron's disease Therapy/Recovery PT-OP-C Subjective Start: 11/14/18 08:11 Freq: Status: Active Protocol: Document 01/16/19 08:11 EA (Rec: 01/16/19 08:16 EA [id number]) OP-PT Subjective Patient Comments Patient Comments Pt reports compliant with HEP and would like to know more HEP; states she is much improved since. Patient Questionnaires Quick Dash- Upper Extremity Quick Dash UE Score 15 Quick Dash UE Impairment 1 to 19% Impaired (Score 1-19) PT-OP-E Functional Tests Start: 11/14/18 08:11 Freq: Status: Active Protocol: Document 11/15/18 07:30 EA (Rec: 11/15/18 07:53 EA [id number]) Functional Tests Apley's Scratch Test Action 1- Left able Action 1- Right able Action 2- Left T4 Action 2- Right T6 Action 3- Left T8 Action 3- Right T4 PT-OP-F Manual Assessment Start: 11/14/18 08:11 Freq: Status: Active Protocol: Document 11/15/18 07:30 EA (Rec: 11/15/18 07:53 EA [id number]) Manual Assessments Soft Tissue Assessment Soft Tissue Mobility Assessment Pectorals, Left upper traps. Joint Mobility Assessment Joint Mobility Assessment Normal PT-OP-J Posture/Palpation/Skin Start: 11/14/18 08:11 Freq: Status: Active Protocol: Document 11/15/18 07:30 EA (Rec: 11/15/18 07:53 EA [id number]) Posture Evaluation Comments Posture Comments Slight forward head rouded shoulder with left shoulder slightly elevated. Palpation Assessment Location One Palpation Location Left upper traps, Teres Minor, Infraspinatus Palpation Findings Tenderness PT-OP-K Range of Motion Start: 11/14/18 08:11 Freq: Status: Active Protocol: Document 01/16/19 08:11 EA (Rec: 01/16/19 08:16 EA [id number]) Shoulder Goniometric Range of Motion Shoulder Right Active Shoulder ROM WFL Yes Left Active Flexion 180 Extension 60 Abduction 180 External Rotation at 90 degrees 70 Abduction Internal Rotation Behind Back (text) 40 PT-OP-L Special Tests Start: 11/14/18 08:11 Freq: Status: Active Protocol: Document 11/15/18 07:30 EA (Rec: 11/15/18 07:53 EA [id number]) Special Tests Shoulder Special Tests Yergason's Biceps Test Results - Posterior Impingement Test Results + Lift-Off Rotator Cuff Test Results + Empty Can Test Results sensitive Fregoso Impingement Test Results + Elevation Impingement Test Results + PT-OP-M Strength Start: 11/14/18 08:11 Freq: Status: Active Protocol: Document 01/16/19 08:11 EA (Rec: 01/16/19 08:16 EA [id number]) Shoulder Strength Shoulder Manual Muscle Testing Right Reason Not Measured WFL Left Flexion 4+ Good+ Extension 5 Normal Abduction (C5) 4+ Good+ Adduction 5 Normal External Rotation 4 Good Internal Rotation 4 Good PT-OP-Q Treatments Start: 11/14/18 08:11 Freq: Status: Active Protocol: Document 12/29/18 11:26 SA (Rec: 12/29/18 11:36 SA [id number]) Cardio Equipment Upper Body Ergometer (UBE) Duration (Minutes) 5 RPM 11 Height 7 Therapeutic Exercises Supine Exercises 2 Supine Exercise Name supine-small towel rol Reps/Minutes 2 min Prone Exercises 1 Prone Exercise Name T-bal shoulder T and Y Resistance 2# Reps/Minutes x 12 x2 sets Sidelying Exercises 3 Sidelying Exercise Name Horiz ABD Side left Resistance 2# Reps/Minutes x 15 reps 2 Sidelying Exercise Name Abduction Side left Resistance 1-2# Reps/Minutes x15 reps x 2 1 Sidelying Exercise Name ER Side left Resistance 2# Reps/Minutes x15 reps Standing Exercises 4 Standing Exercise Name Body blade: lower, mid, upper Reps/Minutes fatigue each range 2 Standing Exercise Name wall posture T-bar flexion Resistance #2 Comments 2 x 15 1 Standing Exercise Name T-bar shoulder ext Side bilateral Resistance 2# Reps/Minutes x 15 reps x 2 Manual Therapy Treatment Soft Tissue Mobilization 1 Body Location B UT/Scalens Mobilization Type Cross-Friction Myofascial Release Rolling Intensity/Depth Moderate Body Position Supine Manual Techniques 3 Type manual IR stretch 1 Type posterior capsule stretch PT-OP-R Modalities Start: 11/14/18 08:11 Freq: Status: Active Protocol: Document 12/21/18 17:03 AMH (Rec: 12/21/18 17:10 AMH [id number]) Hot Pack/Cold Pack Treatment Cold Pack Location Left shoulder/ant Patient Position Hooklying Treatment Duration (minutes) 15 Patient Tolerance Good PT-OP-T Assessment and Plan Start: 11/14/18 08:11 Freq: Status: Active Protocol: Document 01/16/19 08:11 WILLIAM (Rec: 01/16/19 08:16 EA [id number]) Physical Therapy Assessment Impairments Impairments Posture Strength Goals Four Impairment Impaired functioanal Appley's test Cementer Machine Applicator Goal (LTG) Patient will have normal functional reach behind with no increase in symptoms. LTG Duration Goal reached Three Impairment Impaired donning and doffing upper clothings Cementer Machine Applicator Goal (LTG) Patient will jefferson and doff clothings with no pain and impairment. LTG Duration Goal reached Two Impairment quick Dash of 16 [facility] Goal (LTG) Patient will have quickDash results of < 10 LTG Duration 4 wks ( Improving) One Impairment NO HEP in place Cementer Machine Applicator Goal (LTG) Patient will exhibit indep HEP . LTG Duration 4 wks (Improving) Progress Towards Goals Progress Towards Goals Progressing Toward Goals Assessment Summary Assessment Patient continued to show excellent improvement to her left shoulder; she denies constant pain and is having very less frequent pain. Assessment reveals slight strength deficit to shoulder strength otherwise very functional. Overall patient is very happy about her progress and would like to prevent recurrence. Patient will cont. to benefit with skilled PT with focus of advance exercises and transition for fitness exercises. Physical Therapy Plan Frequency and Duration Frequency of Treatment 1x/Week Duration of Treatment 6 wks Plan of Care Start Date 01/16/19 Plan of Care End Date 02/27/19 Next Visit Focus/Plan Next Note Type Treatment Note Next Visit Plan advance and discharge patient as needed
--- NOTE | 2019-01-31 08:39 | PT.OTN ---
Current Diagnoses Pain in left shoulder (01/31/19) Physical Therapy Treatment Note PT-OP-A Visit Information Start: 11/14/18 08:11 Freq: Status: Active Protocol: Document 01/31/19 08:33 EA (Rec: 01/31/19 08:38 EA [id number]) Out-Patient Physical Therapy Visit Information Visit Information Visit Type Treatment Note Visit Note discharge today Visit Start Time 08:15 Visit Stop Time 08:22 Total Visit Minutes 17 Visit Number 13 PT-OP-B Current Condition Start: 11/14/18 08:11 Freq: Status: Active Protocol: Document 11/15/18 07:30 EA (Rec: 11/15/18 07:53 EA [id number]) Current Condition History of Current Condition Onset Date 1 1/2 month ago Current Complaints Left shoulder pain History of Current Condition Present condition started 1 1/ 2 month ago with no known reason; states pain gradually developed and aggravated with shoulder internal rotation and adduction like wearing under shirt of jacket. He mentioned that she has a side table drawer on the left side that she thinks aggravated most when opening and closing it. She denies pain at night. Patient reports no recent x- ray performed. She does go to chiropractor once a month and massage therapist with good results. Prescribed anti- inflammatory meds helps her to managed pain. Prior Treatments and Tests Chiropractor and massage therapist treament once month. Future Testing and Treatments Planned None identified. Treatment Goals Patient/Caregiver Goals Patient would like to get rid of the pain. Prior Functional Status Baseline Function- ADL's Independent Baseline Function- Mobility Independent Baseline Function- Work/School No limitation at work 1 1/2 month ago Baseline Function- Recreation/Hobbies Did not mentioned any recreational activities or hobbies. Current Functional Impairments (Reported) Functional Limitations- ADL's Indep with limitation in overhead, donning and doffing clothings. 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 Difficulty with closing and opening left side table drawer Functional Limitations- Recreation/ No mentioned recreation and Hobbies hobbies Functional Limitations- Other None Personal Factors Other Personal Factors That May Effect Chron's disease Therapy/Recovery PT-OP-C Subjective Start: 11/14/18 08:11 Freq: Status: Active Protocol: Document 01/31/19 08:33 EA (Rec: 01/31/19 08:38 EA [id number]) OP-PT Subjective Patient Comments Patient Comments Pt reports she has been compliant with HEP and no symptoms reccured noted in the past weeks. Aggreable to review HEP and discharge today . PT-OP-E Functional Tests Start: 11/14/18 08:11 Freq: Status: Active Protocol: Document 11/15/18 07:30 EA (Rec: 11/15/18 07:53 EA [id number]) Functional Tests Apley's Scratch Test Action 1- Left able Action 1- Right able Action 2- Left T4 Action 2- Right T6 Action 3- Left T8 Action 3- Right T4 PT-OP-F Manual Assessment Start: 11/14/18 08:11 Freq: Status: Active Protocol: Document 11/15/18 07:30 EA (Rec: 11/15/18 07:53 EA [id number]) Manual Assessments Soft Tissue Assessment Soft Tissue Mobility Assessment Pectorals, Left upper traps. Joint Mobility Assessment Joint Mobility Assessment Normal PT-OP-J Posture/Palpation/Skin Start: 11/14/18 08:11 Freq: Status: Active Protocol: Document 11/15/18 07:30 EA (Rec: 11/15/18 07:53 EA [id number]) Posture Evaluation Comments Posture Comments Slight forward head rouded shoulder with left shoulder slightly elevated. Palpation Assessment Location One Palpation Location Left upper traps, Teres Minor, Infraspinatus Palpation Findings Tenderness PT-OP-K Range of Motion Start: 11/14/18 08:11 Freq: Status: Active Protocol: Document 01/16/19 08:11 EA (Rec: 01/16/19 08:16 EA [id number]) Shoulder Goniometric Range of Motion Shoulder Right Active Shoulder ROM WFL Yes Left Active Flexion 180 Extension 60 Abduction 180 External Rotation at 90 degrees 70 Abduction Internal Rotation Behind Back (text) 40 PT-OP-L Special Tests Start: 11/14/18 08:11 Freq: Status: Active Protocol: Document 11/15/18 07:30 EA (Rec: 11/15/18 07:53 EA [id number]) Special Tests Shoulder Special Tests Yergason's Biceps Test Results - Posterior Impingement Test Results + Lift-Off Rotator Cuff Test Results + Empty Can Test Results sensitive Fregoso Impingement Test Results + Elevation Impingement Test Results + PT-OP-M Strength Start: 11/14/18 08:11 Freq: Status: Active Protocol: Document 01/16/19 08:11 EA (Rec: 01/16/19 08:16 EA [id number]) Shoulder Strength Shoulder Manual Muscle Testing Right Reason Not Measured WFL Left Flexion 4+ Good+ Extension 5 Normal Abduction (C5) 4+ Good+ Adduction 5 Normal External Rotation 4 Good Internal Rotation 4 Good PT-OP-Q Treatments Start: 11/14/18 08:11 Freq: Status: Active Protocol: Document 01/31/19 08:33 EA (Rec: 01/31/19 08:38 EA [id number]) Self-Care/Home Management Treatment Education Patient Education Home Exercise Program Joint Protection Pain Management Posture Other Education Pt educated with prevention and safe exercises. Review HEP and progression of exercises. PT-OP-R Modalities Start: 11/14/18 08:11 Freq: Status: Active Protocol: Document 12/21/18 17:03 AMH (Rec: 12/21/18 17:10 AMH [email or web address]) Hot Pack/Cold Pack Treatment Cold Pack Location Left shoulder/ant Patient Position Hooklying Treatment Duration (minutes) 15 Patient Tolerance Good PT-OP-T Assessment and Plan Start: 11/14/18 08:11 Freq: Status: Active Protocol: Document 01/31/19 08:33 EA (Rec: 01/31/19 08:38 EA [id number]) Physical Therapy Assessment Assessment Summary Assessment Pt is discharge today upon request and reaching goals. Patient is recovered. Physical Therapy Plan Discharge Physical Therapy Discharge Reasons Goals Met
== END 2019-02-01 10:10 | disposition home or self-care (01) ==
LOC: PHYS 08:15
PROVIDERS: Family Provider Internal Medicine; PCP Internal Medicine; Visit Provider Internal Medicine
DX: M25.512 Pain in left shoulder (principal)
CPT/HCPCS: 97010; 97014; 97035; 97110; 97140; 97161; 97535; G0283

== ENCOUNTER → 2020-01-09 10:16 | Outpatient (CLI) | payer BC, SELFPAY ==
--- NOTE | 2020-01-09 | DI.MG.S_ITS ---
BILATERAL DIGITAL SCREENING MAMMOGRAM 3D/2D WITH CAD: 01/09/2020 CLINICAL: Routine screening. Family history of breast cancer. Comparison is made to exams dated: 12/26/2018 mammogram, 12/23/2017 mammogram, 11/19/2016 mammogram, 10/25/2014 mammogram, and 11/14/2015 mammogram - [facility]. The tissue of both breasts is extremely dense, which lowers the sensitivity of mammography. Current study was also evaluated with a Computer Aided Detection (CAD) system. No significant masses, calcifications, or other findings are seen in either breast. There has been no significant interval change. IMPRESSION: NEGATIVE There is no mammographic evidence of malignancy. A 1 year screening mammogram is recommended. This exam was interpreted at Station ID: [id number]. NOTE: For mammograms, a report in lay terms will be sent to the patient. Approximately 15% of breast malignancies will not be visualized mammographically. In the management of a palpable breast mass, a negative mammogram must not discourage biopsy of a clinically suspicious lesion. Electronically Signed By: Francisco ortiz/mason:01/09/2020 11:47:25 copy to: Pushpa Urbina letter sent: Normal Exam ACR BI-RADS Category 1: Negative 3341F
== END ==
PROVIDERS: Family Provider Internal Medicine; PCP Internal Medicine; Referring Provider Internal Medicine; Visit Provider Internal Medicine
DX: Z12.31 Encounter for screening mammogram for malignant neoplasm of breast (principal); Z80.3 Family history of malignant neoplasm of breast
CPT/HCPCS: 77063; 77067

== ENCOUNTER → 2021-01-09 08:22 | Outpatient (CLI) | payer BC, SELFPAY ==
--- NOTE | 2021-01-09 08:23 | DI.MG.S_ITS ---
BILATERAL DIGITAL SCREENING MAMMOGRAM 3D/2D WITH CAD: 01/09/2021 CLINICAL: Routine screening. Family history of breast cancer. Comparison is made to exams dated: 01/09/2020 mammogram, 12/26/2018 mammogram, and 12/23/2017 mammogram - [facility]. The tissue of both breasts is extremely dense, which lowers the sensitivity of mammography. Current study was also evaluated with a Computer Aided Detection (CAD) system. There are benign diffuse calcifications in both breasts. There are new grouped fine calcifications in the left breast at 1 o'clock posterior depth. No other significant masses, calcifications, or other findings are seen in either breast. IMPRESSION: INCOMPLETE: NEEDS ADDITIONAL IMAGING EVALUATION The new grouped fine calcifications in the left breast are indeterminate. Mediolateral, spot magnification, and additional views are recommended. This exam was interpreted at Station ID: [id number]. NOTE: For mammograms, a report in lay terms will be sent to the patient. Approximately 15% of breast malignancies will not be visualized mammographically. In the management of a palpable breast mass, a negative mammogram must not discourage biopsy of a clinically suspicious lesion. Electronically Signed By: Francisco Smith M.D. [email or web address]/:01/09/2021 09:11:46 letter sent: Additional Imaging Needed ACR BI-RADS Category 0: Incomplete 3340F
== END ==
PROVIDERS: Family Provider Internal Medicine; PCP Internal Medicine; Referring Provider Internal Medicine; Visit Provider Internal Medicine
DX: Z12.31 Encounter for screening mammogram for malignant neoplasm of breast (principal); Z80.3 Family history of malignant neoplasm of breast
CPT/HCPCS: 77063; 77067

== ENCOUNTER → 2021-02-03 09:25 | Outpatient (CLI) | payer BC, SELFPAY ==
--- NOTE | 2021-02-03 09:26 | DI.MG.S_ITS ---
UNILATERAL LEFT DIGITAL DIAGNOSTIC MAMMOGRAM 3D/2D WITH ADDITIONAL VIEWS: 02/03/2021 CLINICAL: Additional evaluation requested from prior study. Comparison is made to exams dated: 01/09/2021 mammogram, 01/09/2020 mammogram, and 12/26/2018 mammogram - [facility]. The tissue of left breast is extremely dense, which lowers the sensitivity of mammography. Redemonstration of previously described grouped fine punctate calcifications in the left breast at 3 o'clock posterior depth. These are confirmed in additional views. No other significant masses or calcifications are seen in the breast. IMPRESSION: SUSPICIOUS OF MALIGNANCY The grouped fine punctate calcifications in the left breast are at a low suspicion for malignancy. A stereotactic biopsy is recommended. Findings and recommendations were discussed with the patient by Dr. Sood during today's examination. This exam was interpreted at Station ID: [id number]. NOTE: For mammograms, a report in lay terms will be sent to the patient. Approximately 15% of breast malignancies will not be visualized mammographically. In the management of a palpable breast mass, a negative mammogram must not discourage biopsy of a clinically suspicious lesion. Electronically Signed By: Emanuel Snyder M.D. aty/:02/03/2021 10:16:30 copy to: Betty Orozco letter sent: Biopsy Required ACR BI-RADS Category 4a: Suspicious abnormality - low suspicion for malignancy 3344F
== END ==
PROVIDERS: Family Provider Internal Medicine; PCP Internal Medicine; Referring Provider Obstetrics & Gynecology; Visit Provider Obstetrics & Gynecology
DX: R92.8 Other abnormal and inconclusive findings on diagnostic imaging of breast (principal); R92.1 Mammographic calcification found on diagnostic imaging of breast
CPT/HCPCS: 77065; G0279

== ENCOUNTER → 2021-04-27 09:40 | Outpatient (CLI) | payer BC, SELFPAY ==
[2021-04-27 11:11] LABS: COVID19 -Nasal RAPID Negative (Negative)
== END ==
PROVIDERS: Family Provider Internal Medicine; PCP Internal Medicine; Visit Provider Physician Assistant
DX: Z20.822 Contact with and (suspected) exposure to COVID-19 (principal); R11.2 Nausea with vomiting, unspecified
CPT/HCPCS: 87635

== ENCOUNTER → 2022-02-15 11:15 | Outpatient (CLI) | payer OTHER, SELFPAY ==
--- NOTE | 2022-02-15 | DI.MG.S_ITS ---
BILATERAL DIGITAL SCREENING MAMMOGRAM 3D/2D WITH CAD: 02/15/2022 CLINICAL: Routine screening. Family history of breast cancer. Comparison is made to exams dated: 02/03/2021 mammogram, 01/09/2021 mammogram, 01/09/2020 mammogram, and 12/26/2018 mammogram - [facility]. The tissue of both breasts is extremely dense, which lowers the sensitivity of mammography. Current study was also evaluated with a Computer Aided Detection (CAD) system. No significant masses, calcifications, or other findings are seen in either breast. There has been no significant interval change. IMPRESSION: NEGATIVE There is no mammographic evidence of malignancy. A 1 year screening mammogram is recommended. Based on Tyrer-Cuzick model (a risk assessment model), the patient's lifetime risk is 20.8% and her 10 year risk is 4.4%. If a patient has an elevated risk, a more comprehensive evaluation should be considered and/or a referral to a genetic counselor. The [place] [employer], [place], and NCCN Guidelines advise the consideration of Breast MRI as an adjunct to screening mammography in patients whose Lifetime risk to develop breast cancer is 20% or higher. This exam was interpreted at Station ID: [id number]. NOTE: For mammograms, a report in lay terms will be sent to the patient. Approximately 15% of breast malignancies will not be visualized mammographically. In the management of a palpable breast mass, a negative mammogram must not discourage biopsy of a clinically suspicious lesion. Electronically Signed By: Brodie David M.D., jr/mason:02/15/2022 14:49:04 copy to: Betty Orozco letter sent: Normal Exam ACR BI-RADS Category 1: Negative 3341F
== END ==
PROVIDERS: Family Provider Internal Medicine; PCP Internal Medicine; Referring Provider Internal Medicine; Visit Provider Internal Medicine
DX: Z12.31 Encounter for screening mammogram for malignant neoplasm of breast (principal); Z80.3 Family history of malignant neoplasm of breast
CPT/HCPCS: 77063; 77067

== ENCOUNTER → 2023-02-17 09:13 | Outpatient (CLI) | payer OTHER, SELFPAY ==
--- NOTE | 2023-02-17 | DI.MG.S_ITS ---
BILATERAL DIGITAL SCREENING MAMMOGRAM 3D/2D WITH CAD: 02/17/2023 CLINICAL: Routine screening. Family history of breast cancer. Comparison is made to exams dated: 02/15/2022 mammogram, 01/09/2021 mammogram, and 01/09/[address] - [facility]. Both breasts are heterogeneously dense, which may obscure small masses (category c / 51-75% glandular tissue). Current study was also evaluated with a Computer Aided Detection (CAD) system. There are benign calcifications in both breasts. There also are biopsy clips in the left breast. No significant masses, calcifications, or other findings are seen in either breast. There has been no significant interval change. IMPRESSION: BENIGN There is no mammographic evidence of malignancy. A 1 year screening mammogram is recommended. Based on the Tyrer Cuzick model (a risk assessment model) the patient's lifetime risk is 14.2% and her 10 year risk is 3.1%. According to the ACR, ACS, and NCCN guidelines, an annual breast MRI exam along with mammogram is recommended if the patient's lifetime risk is 20% or greater. This exam was interpreted at Station ID: [id number]. NOTE: For mammograms, a report in lay terms will be sent to the patient. Approximately 15% of breast malignancies will not be visualized mammographically. In the management of a palpable breast mass, a negative mammogram must not discourage biopsy of a clinically suspicious lesion. Electronically Signed By: Jacqueline carmona/mason:02/17/2023 10:57:50 copy to: Betty Orozco letter sent: Normal Exam ACR BI-RADS Category 2: Benign Finding(s) 3342F
== END ==
PROVIDERS: Family Provider Internal Medicine; PCP Internal Medicine; Referring Provider Internal Medicine; Visit Provider Internal Medicine
DX: Z12.31 Encounter for screening mammogram for malignant neoplasm of breast (principal); Z80.3 Family history of malignant neoplasm of breast
CPT/HCPCS: 77063; 77067

== ENCOUNTER → 2024-02-28 11:44 | Outpatient (CLI) | payer OTHER, SELFPAY ==
--- NOTE | 2024-02-28 11:51 | DI.RAD.S_ITS ---
PROCEDURE: XR CERVICAL SPINE 4V OR 5V INDICATIONS: NECK PAIN TECHNIQUE: 5 views of the cervical spine acquired. COMPARISON: None. FINDINGS: Bones: No fractures or dislocations to the T1 level. Multilevel disc space narrowing degenerative endplate changes most notably at C5-6 through C7-T1. Multilevel uncovertebral joint and facet hypertrophy. Oblique images demonstrate minimal foraminal narrowing at the C3-4 level bilaterally and right C4-5 level. Soft tissues: No prevertebral soft tissue swelling. IMPRESSION: Mild multilevel spondylosis. Approved by: Christian Navarro M.D. on 02/29/2024 at 9:17
== END ==
PROVIDERS: Family Provider Internal Medicine; PCP Internal Medicine; Referring Provider Internal Medicine; Visit Provider Internal Medicine
DX: M54.2 Cervicalgia (principal); M47.812 Spondylosis without myelopathy or radiculopathy, cervical region
CPT/HCPCS: 72050

== ENCOUNTER → 2024-03-14 09:15 | Outpatient (CLI) | payer OTHER, SELFPAY ==
--- NOTE | 2024-03-14 | DI.MG.S_ITS ---
BILATERAL DIGITAL SCREENING MAMMOGRAM 3D/2D WITH CAD: 03/14/2024 CLINICAL: Routine screening. Family history of breast cancer. Comparison is made to exams dated: 02/17/2023 mammogram, 02/15/2022 mammogram, and 01/09/2021 mammogram - [facility]. Both breasts are heterogeneously dense, which may obscure small masses (category c / 51-75% glandular tissue). Current study was also evaluated with a Computer Aided Detection (CAD) system. There are biopsy clips in the left breast. No significant masses, calcifications, or other findings are seen in either breast. There has been no significant interval change. IMPRESSION: BENIGN There is no mammographic evidence of malignancy. A 1 year screening mammogram is recommended. Based on the Tyrer Cuzick model (a risk assessment model) the patient's lifetime risk is 14.3% and her 10 year risk is 3.2%. According to the ACR, ACS, and NCCN guidelines, an annual breast MRI exam along with mammogram is recommended if the patient's lifetime risk is 20% or greater. This exam was interpreted at Station ID: [id number]. NOTE: For mammograms, a report in lay terms will be sent to the patient. Approximately 15% of breast malignancies will not be visualized mammographically. In the management of a palpable breast mass, a negative mammogram must not discourage biopsy of a clinically suspicious lesion. Electronically Signed By: Vania Pineda M.D., Ph.D. anjali/mason:03/15/2024 22:09:47 copy to: Betty Orozco letter sent: Normal Exam ACR BI-RADS Category 2: Benign Finding(s) 3342F
== END ==
LOC: MAMMO 09:16
PROVIDERS: Family Provider Internal Medicine; PCP Internal Medicine; Referring Provider Internal Medicine; Visit Provider Internal Medicine
DX: Z12.31 Encounter for screening mammogram for malignant neoplasm of breast (principal); R92.333 Mammographic heterogeneous density, bilateral breasts; Z80.3 Family history of malignant neoplasm of breast; Z97.8 Presence of other specified devices
CPT/HCPCS: 77063; 77067

== ENCOUNTER → 2024-11-08 13:11 | Outpatient (CLI) | payer OTHER, SELFPAY ==
--- NOTE | 2024-11-08 13:12 | DI.RAD.S_ITS ---
PROCEDURE: XR DEXA AXIAL SKELETON INDICATIONS: osteopenia of multiple sites COMPARISON: [facility], , XR DEXA AXIAL SKELETON, 12/25/2018, 13:52. [facility], , XR DEXA AXIAL SKELETON, 12/20/2017, 15:20. FINDINGS: Lumbar Spine: Bone mineral density 1.024 g/cm2, T score -0.2, similar to prior. Left Femoral Neck: Bone mineral density 0.709 g/cm2, T score -1.3. Left Hip: Bone mineral density 0.867 g/cm2, T score -0.6, previously -0.9. Fracture Risk Calculation (when applicable): 10-year fracture risk of a major osteoporotic fracture 4.3 percent and of a hip fracture 0.3 percent. (T score greater or equal to -1.0 to: NORMAL) (T score from -1.1 to -2.4: OSTEOPENIA) (T score less than or equal to -2.5: OSTEOPOROSIS) IMPRESSION: Osteopenia. Follow-up guidelines as follows: Osteoporosis: Consider a repeat DEXA and Vertebral Fracture Assessment (VFA) exam in 2 years or sooner if medically necessary, to reassess this patient's status. Osteopenia: Consider a repeat DEXA in 2-3 years to reassess this patient's status, or if there is a new clinical indication. Normal: Consider a repeat DEXA in 5 years or sooner, or if there is a new clinical indication. All treatment decisions require clinical judgment and consideration of individual patient factors, including patient preferences, comorbidities, previous drug use, risk factors not captured in the FRAX model (e.g., frailty, falls, vitamin D deficiency, increased bone turnover, interval significant decline in bone density ) and possible under- or over-estimation of fracture risk by FRAX. In addition, the NOF Guide recommends that FDA-approved medical therapies be considered in postmenopausal women and men age >= 50 years with a: * Hip or vertebral (clinical or morphometric) fracture * T-score of <=-2.5 at the spine or hip * Ten-year fracture probability by FRAX of >= 3% for hip fracture or >=20% for major osteoporotic fracture. Dictated by: Tutu Augustine M.D. on 11/09/2024 at 10:26 Approved by: Tutu Augustine M.D. on 11/09/2024 at 10:27
== END ==
PROVIDERS: Family Provider Internal Medicine; PCP Registered Nurse; Referring Provider Registered Nurse; Visit Provider Registered Nurse
DX: M85.89 Other specified disorders of bone density and structure, multiple sites (principal)
CPT/HCPCS: 77080

== ENCOUNTER → 2025-03-20 09:12 | Outpatient (CLI) | payer OTHER, SELFPAY ==
--- NOTE | 2025-03-20 09:13 | DI.MG.S_ITS ---
MM screening mammo BI: 03/20/2025. BI-RADS: 2 CLINICAL: 49-year old female for bilateral screening mammogram. Tyrer-Cuzick lifetime risk of 17.8%. No personal or first-degree family history of breast cancer. Current reported family history of breast cancer: maternal grandmother. The patient had a prior left breast biopsy. PRIOR EXAMS 03/14/2024, 02/17/2023, 02/15/2022, 02/10/2021. MAMMOGRAPHY TECHNIQUE: 2D and 3D (tomosynthesis) digital mammographic views obtained, with additional images as needed for full coverage. Current study was also evaluated with a Computer Aided Detection (CAD) system. DENSITY C. The breasts are heterogeneously dense, which may obscure small masses. MAMMOGRAPHY FINDINGS Right: Benign-appearing calcifications noted on the right. There are no suspicious masses, calcifications, or other findings in the breast. Left: Biopsy marker present on the left. Benign-appearing calcifications noted on the left. There are no suspicious masses, calcifications, or other findings in the breast. IMPRESSION: * No evidence of malignancy with benign findings. RECOMMENDATIONS Bilateral * Annual screening mammography. OVERALL ASSESSMENT CATEGORY BI-RADS-2: Benign. The [employer] recommends annual screening mammography beginning at age 40 for women with average risk of breast cancer. ELECTRONICALLY SIGNED: Emanuel Snyder M.D. on 03/21/2025 at 09:26:26 PM PT Interpreting Station ID: [id number]
== END ==
LOC: MAMMO 09:13
PROVIDERS: Family Provider Internal Medicine; PCP Registered Nurse; Referring Provider Registered Nurse; Visit Provider Registered Nurse
DX: Z12.31 Encounter for screening mammogram for malignant neoplasm of breast (principal); Z80.3 Family history of malignant neoplasm of breast; R92.333 Mammographic heterogeneous density, bilateral breasts
CPT/HCPCS: 77063; 77067